=== PATIENT | female | born 1985 | race Caucasian/White ===

== ENCOUNTER → 2020-09-15 14:15 | Outpatient (CLI) | payer MEDICAID, SELFPAY ==
[2020-09-15 11:15] VITALS: BMI 27.3
[2020-09-15 14:18] LABS: Red Blood Cells-Urine 0 SEEN /hpf (0-5)
[2020-09-15 14:20] LABS: Color, Urine Yellow (Yellow); Glucose, Dipstick Normal (Normal); Leukocyte Esterase-Dipstick 100 /ul (Negative); Nitrite-Dipstick Negative (Negative); Occult Blood-Urine 25 /ul (Negative); Protein-Dipstick 30 mg/dl (Negative); Specific Gravity, Urine 1.025 (1.002-1.030); Urine Bilirubin Dipstick Negative (Negative); Urine Clarity Clear (Clear); Urine Urobilinogen Normal (Normal)
[2020-09-15 14:51] LABS: Ketone-Dipstick 150 mg/dl (Negative)
[2020-09-15 14:57] LABS: Bacteria 1+ /hpf (None Seen); Mucous, Urine 1+ /hpf (<or=2+); Squamous Epithelial Cells - UA 0-5 SEEN /hpf (5-10); White Blood Cells 0-5 SEEN /hpf (0-5)
== END ==
PROVIDERS: PCP Family Medicine; Referring Provider Nurse Practitioner Family; Visit Provider Nurse Practitioner Family
DX: N89.8 Other specified noninflammatory disorders of vagina (principal)
CPT/HCPCS: 81001; 87086

== ENCOUNTER 2020-09-15 15:53 | Emergency (ER) | payer MEDICAID, SELFPAY ==
[2020-09-15 11:15] VITALS: BMI 27.3
[2020-09-15 15:54] VITALS: BP 130/77; PULSE 99; RESP 14; TEMP 36.4; O2SAT 98; BMI 27.3
--- NOTE | 2020-09-15 16:07 | ED.VIS.GEN ---
History of Present Illness Chief Complaint: Abn Labs Detail of Chief Complaint: See below Informant: Patient Onset: Today Associated Symptoms: Malaise. Lightheaded with standing. Lower abd pain and urinary/vaginal sx. Narrative: For about 1 month patient has had vaginal discomfort and a discharge that is yellowish, occasional itching. She thought it was bacterial vaginosis which she has had before, she started using a cream that she had but it was not helping. For the last few days she has felt malaised and lightheaded at times, no fevers or chills. No cough, shortness of breath, nausea, vomiting, diarrhea, hematuria, but a little burning when she pees. She went to urgent care, they did a urinalysis and told her she had high ketones and sent her to the emergency department. Prior to having this urinalysis, she ate breakfast, and then had a small container of yogurt for lunch and presents here around 1600. She does not have diabetes that she knows of. She states she has been urinating frequently lately and thirsty. - Past Medical History (1) Amanda's congenital amaurosis Status: Chronic Past Medical History - Allergies and Home Meds Allergies/Adverse Reactions: Allergies No Known Allergies Allergy (Verified 09/15/20 11:16) Primary Care Physician: George Maza DO [Primary Care Provider] - Review of Systems General: Reports: Malaise. Denies: Chills, Fever, Sweats Eyes: Reports: Visual changes - bilaterally - same as chronically. Denies: Diplopia ENT: Denies: Bilateral ear pain, Rhinorrhea, Sore throat Cardiovascular: Denies: Chest pain, Palpitations Respiratory: Denies: Dyspnea, Cough, Dyspnea on exertion Gastrointestinal: Reports: Abdominal pain. Denies: Nausea, Vomiting, Diarrhea, Melena, Hematochezia Genitourinary: Reports: Dysuria, Frequency, - - vag discharge and discomfort and sometimes itching. Denies: Hematuria Musculoskeletal: Denies: Back pain, Extremity Pain Skin: Denies: Rash, Wounds Neurological: Denies: Headache, Weakness, Numbness Endocrine: Reports: Polyuria, Polydipsia Physical Exam Vital Signs/Narrative: Vital Signs Temp Pulse Resp BP Pulse Ox 09/15/20 15:54 97.6 F L 99 14 130/77 H 98 Inital Vital Signs reviewed: Yes General: Well nourished, Well developed, No Acute Distress Head: Normocephalic, Atraumatic Eyes: Perrl, EOMI, - - nystagmus at rest bilat ENT: Moist mucous membranes, No rhinorrhea Neck: Supple, Nontender Cardiovascular: Regular rate, Regular rhythm, No murmurs. Negative for: Tachycardia Respiratory: No distress, CTA bilaterally, Chest nontender Abdomen: Soft, Nondistended, Normal bowel sounds, Tender - mild suprapubic only Back: Nontender, Normal Inspection. Negative for: CVA tenderness Extremities: Nontender, No edema. Negative for: Calf Tenderness Skin: Normal color, No rash, No Trauma Neurological: Alert, Oriented x3, Cranial nerves II-XII grossly intact, Normal Strength, Normal Sensation, Normal Gait Psychological: Normal affect, Normal Mood Diagnostic/Tx/Re-eval Laboratory Tests 09/15/20 09/15/20 09/15/20 Range/Units 16:37 16:35 16:30 WBC (4.4-11.0) K/mm3 RBC (4.2-5.4) M/mm3 Hgb (12.0-15.0) g/dL Hct (37-47) % MCV (81-99) fL MCH (27.0-32.0) pg MCHC (32-36) g/dL RDW Std Deviation (35.1-43.9) fl RDW Coeff of Renée (11.6-14.6) % Plt Count (150-450) K/mm3 MPV (6.2-12.0) fl Immature Gran % (Auto) (0.0-0.9) % Neut % (Auto) (47-70) % Lymph % (Auto) (19-41) % Jerome % (Auto) (0-10) % Eos % (Auto) (0-5) % Baso % (Auto) (0-1) % Absolute Neuts (auto) (2.0-7.7) X10^3/uL Absolute Lymphs (auto) (0.83-4.51) X10^3/uL Nucleated RBC % (0-5) % Specimen Type JAIMEE VBG pH 7.41 (7.32-7.42) VBG pO2 33 (25-40) mmHg VBG HCO3 23 (22-26) mmol/L VBG Total CO2 24 (23-33) mmol/L VBG O2 Sat (Calc) 64 (50-70) % VBG Base Excess -2 L (-1.0-3.5) mmol/L POC Mix VBG pCO2 Pt Tmp 36.4 L (41-51) mmHg Sodium (136-145) mmol/L Potassium (3.5-5.1) mmol/L Chloride (98-107) mmol/L Carbon Dioxide (21.0-32.0) mmol/L Anion Gap (5-15) BUN (7-18) mg/dL Creatinine (0.55-1.02) mg/dL Estim Creat Clear Calc ml/min Est GFR (MDRD) Af Amer (>60) mL/min Est GFR (MDRD) Non-Af (>60) mL/min BUN/Creatinine Ratio (10-20) RATIO Glucose (74-106) mg/dL Calcium (8.5-10.1) mg/dL Serum , Qual NEGATIVE Negative Urine Color Straw (Yellow) Urine Clarity Clear (Clear) Urine pH 6.0 (5.0 - 8.0) Ur Specific [place] 1.010 (1.002-1.030) Urine Protein Negative (Negative) mg/dl Urine Glucose (UA) Normal (Normal) mg/dl Urine Ketones 50 H (Negative) mg/dl Urine Occult Blood Negative (Negative) /ul Urine Nitrite Negative (Negative) Urine Bilirubin Negative (Negative) mg/dL Urine Urobilinogen Normal (Normal) mg/dl Ur Leukocyte Esterase 100 H (Negative) /ul Urine RBC 0 SEEN (0-5) /hpf Urine WBC 0 SEEN (0-5) /hpf Ur Squamous Epith Cells 0-5 SEEN (5-10) /hpf Urine Bacteria 0 SEEN (None Seen) /hpf Urine Mucus 0 SEEN (<or=2+) /hpf Acetone Level (NEG) 09/15/20 09/15/20 09/15/20 Range/Units 16:30 16:30 16:30 WBC 5.7 (4.4-11.0) K/mm3 RBC 4.64 (4.2-5.4) M/mm3 Hgb 13.5 (12.0-15.0) g/dL Hct 41.0 (37-47) % MCV 88.4 (81-99) fL MCH 29.1 (27.0-32.0) pg MCHC 32.9 (32-36) g/dL RDW Std Deviation 40.8 (35.1-43.9) fl RDW Coeff of Renée 12.4 (11.6-14.6) % Plt Count 267 (150-450) K/mm3 MPV 9.2 (6.2-12.0) fl Immature Gran % (Auto) 0.500 (0.0-0.9) % Neut % (Auto) 49.2 (47-70) % Lymph % (Auto) 38.8 (19-41) % Jerome % (Auto) 6.9 (0-10) % Eos % (Auto) 3.2 (0-5) % Baso % (Auto) 1.4 H (0-1) % Absolute Neuts (auto) 2.8 (2.0-7.7) X10^3/uL Absolute Lymphs (auto) 2.21 (0.83-4.51) X10^3/uL Nucleated RBC % 0 (0-5) % Specimen Type VBG pH (7.32-7.42) VBG pO2 (25-40) mmHg VBG HCO3 (22-26) mmol/L VBG Total CO2 (23-33) mmol/L VBG O2 Sat (Calc) (50-70) % VBG Base Excess (-1.0-3.5) mmol/L POC Mix VBG pCO2 Pt Tmp (41-51) mmHg Sodium 136 (136-145) mmol/L Potassium 3.7 (3.5-5.1) mmol/L Chloride 106 (98-107) mmol/L Carbon Dioxide 22.0 (21.0-32.0) mmol/L Anion Gap 8 (5-15) BUN 14 (7-18) mg/dL Creatinine 0.83 (0.55-1.02) mg/dL Estim Creat Clear Calc 72.75 ml/min Est GFR (MDRD) Af Amer 101 (>60) mL/min Est GFR (MDRD) Non-Af 84 (>60) mL/min BUN/Creatinine Ratio 16.8 (10-20) RATIO Glucose 85 (74-106) mg/dL Calcium 8.8 (8.5-10.1) mg/dL Serum , Qual Negative Urine Color (Yellow) Urine Clarity (Clear) Urine pH (5.0 - 8.0) Ur Specific [place] (1.002-1.030) Urine Protein (Negative) mg/dl Urine Glucose (UA) (Normal) mg/dl Urine Ketones (Negative) mg/dl Urine Occult Blood (Negative) /ul Urine Nitrite (Negative) Urine Bilirubin (Negative) mg/dL Urine Urobilinogen (Normal) mg/dl Ur Leukocyte Esterase (Negative) /ul Urine RBC (0-5) /hpf Urine WBC (0-5) /hpf Ur Squamous Epith Cells (5-10) /hpf Urine Bacteria (None Seen) /hpf Urine Mucus (<or=2+) /hpf Acetone Level NEGATIVE (NEG) - Medical Decision Making Patient's urine does show some ketones here, but the rest of her work-up is normal. She does not have diabetes and certainly is not in DKA according to the work-up above. Pelvic exam was very benign. She did not have a lot of discomfort, externally there were no lesions. On speculum exam there is a trace amount of mucousy discharge present, there is no other abnormalities or cervicitis present. The wet prep is negative for trichomonas, the exam is inconsistent with candidiasis, and there are white blood cells present so I think it would be reasonable to treat her for bacterial vaginosis which is what she felt like the symptoms represented anyway. With regards to the ketones in her urine, this is likely due to starvation ketosis because what ever she ate today did not have much in the way of carbohydrates. She was reassured. ED Disposition - Plan for ED Patient: Disposition: Home or Assisted Living Diagnosis: Bacterial vaginosis Instructions: ED Bacterial Vaginosis (BV) Prescriptions: metroNIDAZOLE [Flagyl] 500 mg PO BID #14 tablet Transmission Status: Pending to [facility] [facility] Referrals: George Maza, [Primary Care Provider] - As Needed (And/or your OB)
[2020-09-15 16:40] LABS: Absolute Lymphocyte Count 2.21 X10^3/uL (0.83-4.51); Absolute Neutrophil Count 2.8 X10^3/uL (2.0-7.7); Basophil# 0.08 X10^3/uL; Basophil% 1.4 % (0-1); Eosinophil# 0.18 X10^3/uL; Eosinophils% 3.2 % (0-5); Hemoglobin 13.5 g/dL (12.0-15.0); Lymphocyte # 2.21 X10^3/ul (0.83-4.51); Lymphocyte % 38.8 % (19-41); Mean Corp Hgb Conc 32.9 g/dL (32-36); Mean Corpuscular Hgb 29.1 pg (27.0-32.0); Mean Corpuscular Volume 88.4 fL (81-99); Mean Platelet Vol. 9.2 fl (6.2-12.0); Monocyte# 0.39 X10^3/uL; Monocyte% 6.9 % (0-10); NRBC Flagged by Analyzer 0 % (0-5); Neutrophil % 49.2 % (47-70); Platelet Count 267 K/mm3 (150-450); RBC Distribution Width CV 12.4 % (11.6-14.6); RBC Distribution Width SD 40.8 fl (35.1-43.9); Red Blood Count 4.64 M/mm3 (4.2-5.4); White Blood Count 5.7 K/mm3 (4.4-11.0)
[2020-09-15 16:40] LABS: Blood Gas Specimen Type VEN; VBG BASE EXCESS -2 mmol/L (-1.0-3.5); VBG Bicarbonate 23 mmol/L (22-26); VBG PO2 33 mmHg (25-40); VBG SO2 64 % (50-70); VBG TCO2 24 mmol/L (23-33); VBG pCO2 36.4 mmHg (41-51); VBG pH 7.41 (7.32-7.42)
[2020-09-15] MEDS: 0.9% Normal Saline 1,000 ML 999 ML IV (16:42)
[2020-09-15 16:47] LABS: Bacteria 0 SEEN /hpf (None Seen); Mucous, Urine 0 SEEN /hpf (<or=2+); Red Blood Cells-Urine 0 SEEN /hpf (0-5); White Blood Cells 0 SEEN /hpf (0-5)
[2020-09-15 16:48] LABS: Color, Urine Straw (Yellow); Glucose, Dipstick Normal (Normal); Ketone-Dipstick 50 mg/dl (Negative); Leukocyte Esterase-Dipstick 100 /ul (Negative); Nitrite-Dipstick Negative (Negative); Occult Blood-Urine Negative /ul (Negative); Protein-Dipstick Negative (Negative); Urine Bilirubin Dipstick Negative (Negative); Urine Clarity Clear (Clear); Urine Urobilinogen Normal (Normal)
[2020-09-15 16:51] LABS: Internal QC Validated? YES +Cl - CLEAR BKGD; Pregnancy, Serum, hCG Quali. NEGATIVE Negative
[2020-09-15 16:55] LABS: Anion Gap 8 (5-15); BUN 14 mg/dL (7-18); BUN/Creat Ratio 16.8 RATIO (10-20); Calcium,Total 8.8 mg/dL (8.5-10.1); Chloride 106 mmol/L (98-107); Creatinine, Serum 0.83 mg/dL (0.55-1.02); EST Glomerular Filtration Rate 84 mL/min (>60); Est Glom Filt Rate - Afr Amer 101 mL/min (>60); Estimated Creatinine Clearance 72.75 ml/min; Glucose 85 mg/dL (74-106); Potassium 3.7 mmol/L (3.5-5.1); Sodium Level 136 mmol/L (136-145)
[2020-09-15 16:57] LABS: Squamous Epithelial Cells - UA 0-5 SEEN /hpf (5-10)
[2020-09-15 17:08] VITALS: BP 123/71; BP 130/90; BP 134/80; PULSE 76; PULSE 78; PULSE 90
[2020-09-15 18:55] LABS: Chlamydia Trachomatis by PCR Negative (Negative); Neisserai gonorrhoeae by PCR Negative (Negative); Probe Check PASS; Sample Adequacy Control PASS; Specimen Processing Control PASS
== END 2020-09-15 17:55 | disposition home or self-care (01) ==
PROVIDERS: Emergency Provider Emergency Medicine; PCP Family Medicine
DX: N76.0 Acute vaginitis (principal); B96.89 Other specified bacterial agents as the cause of diseases classified elsewhere
CPT/HCPCS: 80048; 81001; 82009; 82803; 84703; 85025; 87086; 87088; 87210; 87491; 87591; 99285; J7030; A4216

== ENCOUNTER → 2020-09-26 12:51 | Outpatient (CLI) | payer MEDICAID, SELFPAY ==
[2020-09-26 09:08] VITALS: BMI 27.3
[2020-09-28 04:09] LABS: Chlamydia By Nucleic Acid AMP Negative (Negative)
[2020-09-28 07:26] LABS: Gonococcus By Nucleic Acid AMP Negative (Negative)
== END ==
PROVIDERS: PCP Family Medicine; Referring Provider Nurse Practitioner Women's Health; Visit Provider Nurse Practitioner Women's Health
DX: N89.8 Other specified noninflammatory disorders of vagina (principal); Z11.3 Encounter for screening for infections with a predominantly sexual mode of transmission
CPT/HCPCS: 87070; 87205; 87491; 87591

== ENCOUNTER → 2021-04-02 12:48 | Outpatient (CLI) | payer MEDICAID, SELFPAY ==
[2021-04-04 05:07] LABS: Chlamydia By Nucleic Acid AMP Negative (Negative)
[2021-04-04 09:33] LABS: Gonococcus By Nucleic Acid AMP Negative (Negative)
== END ==
PROVIDERS: PCP Family Medicine; Visit Provider Obstetrics & Gynecology
DX: N89.8 Other specified noninflammatory disorders of vagina (principal)
CPT/HCPCS: 87491; 87591

== ENCOUNTER 2021-04-22 13:03 | Day surgery (SDC) | payer MEDICAID, SELFPAY ==
[2021-04-22] VITALS (8 sets, daily range): BP systolic 122–127; BP diastolic 76–83; PULSE 76–96; RESP 16; TEMP 35.9–36.6; O2SAT 95–100; BMI 28.7
--- NOTE | 2021-04-22 12:41 | PCM.HP.BLA ---
History and Physical Medications cetirizine 10 mg PO DAILY 09/15/20 [History Confirmed 04/02/21] norethindrone-ethin estradiol 1 tablet PO DAILY 09/15/20 [History Confirmed 04/02/21] levonorgestrel 20 mcg/24 hours (7 yrs) 52 mg intrauterine device 1 device INTRAUTERINE ONCE 09/26/20 [History Confirmed 04/02/21] Post menopausal: No Patient : No : No PFSH Family History Mother Bladder cancer Social History household members: family number of children: 0 current occupational status: employed current occupation: [employer] history of recent travel: No sexually active: Yes Smoking Status: Never smoker alcohol intake: current alcohol intake frequency: holidays/special occasions only substance use type: does not use what type of physical activity do you participate in: none seatbelt use: always do you feel safe at home: Yes additional social history: single HPI Surgical consult to remove IUD per Details: FAUZIA CARTWRIGHT is a 35 year old who presents for removal of IUD. She has a 3 x3x2 cm intramural fibroid pressing against the IUD and the uterine wall and 2 providers have attempted removal. The patient is using ocps for the fibroid pain and is interested in having the fibroid also removed. 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 Female Reproductive History Cycle Length: 21-35 Bleeding Duration: 5 Questions: metorrhagia: No, sexually active: Yes, dyspareunia: No and PCB: No Menopausal Symptoms: No hot flashes, No night sweats, No weight change, No mood changes, No difficulty concentrating, No sleep problems and No change in libido Pregancy History 0 Elective abortions Hx Para Spontaneous abortions Hx # Term Pregnancies Ectopic pregnancies Hx # Pregnancies Multiple births # of living children ROS Const Constitutional: Reports as per HPI; Denies fatigue, increased appetite, poor appetite, night sweats, weight gain or weight loss Cardio Card: Denies chest pain Resp Resp: Denies cough or dyspnea GI GI: Reports as per HPI; Denies abdominal pain, bloating, constipation, nausea or vomiting : Reports as per HPI and other; Denies difficulty voiding, dysuria, hematuria, hot flashes, nipple discharge, pelvic pain, prolapse symptoms, urinary frequency, urinary incontinence, urinary urgency, vaginal discharge, vaginal dryness, vaginal odor or vaginal pruritus Skin Skin/Breast: Denies changing lesions, breast mass, breast pain, breast skin changes or nipple discharge Psych Psych: Denies anxiety, change in libido, depression or difficulty concentrating Exam Const General: cooperative, healthy appearing, comfortable, no acute distress, well developed and well groomed [facility] Face and sinus: normal facial exam Resp Effort & Inspection: normal respiratory effort GI Inspection: normal to inspection and non-distended Palpation: soft, no hepatosplenomegaly and no guarding General: bladder normal to palpation External Female Exam: normal external appearance, normal appearance of the urethra and no lesions Urethra: normal appearance of the urethra and normal palpation Speculum Exam - Vagina: normal appearance of the vagina and normal vaginal discharge Speculum Exam - Cervix: normal appearance of the cervix, no cervical discharge, no lesions and nontender Bimanual Exam- Vagina & Uterus: normal bimanual exam, uterine size normal, bladder normal to palpation, No tender, uterine mobility normal, consistency normal, non-tender and no cervical motion tenderness Bimanual Exam- Adnexa, other: normal adnexae, no masses and non-tender Skin General: no rashes or lesions noted Neuro General: patient alert, moves all extremities and no focal motor deficits Extrem General: normal to inspection and no pedal edema Psych Appearance: grossly normal Mental Status: mental status grossly normal Affect: normal affect Speech and Movement: speech and movement normal Attitude: cooperative Results Office BVBlue Test Office BVBlue Test Negative Last Edit by Serene Kiran on 04/02/21 11:01 Coding Level of Care Code Off vis,est,level 4 Diagnoses IUD complication T83.9XXA Dysmenorrhea N94.6 Blind H54.7 Fibroid uterus D25.9 Assessment and Plan Assessment and Plan (1) IUD complication: Status: Acute Comment: no visible strings; plan for hysteroscopy, symphion resection of fibroid and removal of IUD. Plan - Dr. Steff Roldan, DO: After discussing the patient's diagnosis and treatment plan options, patient wishes to proceed with surgical management. I have discussed with the patient the risks, benefits, and alternatives of the procedure which include but are not limited to risks of anesthesia, bleeding, infection, possible damage to bowel, bladder, or surrounding vasculature which could lead to additional surgery to evaluate any complications. Patient agrees to procedure and wishes to proceed. ACOG/uptodate references given for additional information regarding procedure. (2) Dysmenorrhea: Status: Acute Comment: OCP (3) Blind: Status: Acute (4) Fibroid uterus: Status: Acute Plan Details Other Orders: Orders: POC BV Blue Test Today N89.8 Chlamydia/GC GAYE aptima Today N89.8 UPDATE- I have seen the patient and performed any clinically relevant updates to the history and physical exam. Steff Reagan DO
[2021-04-22] MEDS: Lactated Ringers 1,000 ML 15 ML IV (13:15)
[2021-04-22 13:50] LABS: Absolute Lymphocyte Count 2.12 X10^3/uL (0.83-4.51); Absolute Neutrophil Count 2.8 X10^3/uL (2.0-7.7); Basophil# 0.07 X10^3/uL; Basophil% 1.2 % (0-1); Eosinophils% 3.6 % (0-5); Hematocrit 38.7 % (37-47); Lymphocyte # 2.12 X10^3/ul (0.83-4.51); Lymphocyte % 37.7 % (19-41); Mean Corp Hgb Conc 33.6 g/dL (32-36); Mean Corpuscular Hgb 29.4 pg (27.0-32.0); Mean Corpuscular Volume 87.6 fL (81-99); Mean Platelet Vol. 8.9 fl (6.2-12.0); Monocyte# 0.38 X10^3/uL; Monocyte% 6.8 % (0-10); NRBC Flagged by Analyzer 0 % (0-5); Neutrophil # 2.84 X10^3/uL (2.7-7.7); Neutrophil % 50.5 % (47-70); Platelet Count 261 K/mm3 (150-450); RBC Distribution Width CV 12.4 % (11.6-14.6); RBC Distribution Width SD 40.1 fl (35.1-43.9); Red Blood Count 4.42 M/mm3 (4.2-5.4); White Blood Count 5.6 K/mm3 (4.4-11.0)
[2021-04-22 13:53] LABS: Internal QC Validated? YES +Cl - CLEAR BKGD; Pregnancy, Urine Negative Negative
--- NOTE | 2021-04-22 14:53 | PCM.DC ---
Discharge Instructions Diet Discharge Diet: No restrictions Activity Discharge Activity: Return to Normal Activity, May Shower and May Take a Tub Bath (after 1 week) May resume sexual activity in: 1-2 weeks Weight Bearing Status: Weight bearing as tolerated Lifting Restrictions: none Dressing / Incision Call your doctor if you observe: Fever of 101 or Higher, Using more than 1 pad per hour, Shortness of breath and Uncontrolled pain Follow Up Care Please Follow Up With: Steff Reagan DO When: Call [phone] to schedule appointment. Test Results: Test results from this visit will be discussed in further detail at your follow-up appointment, if applicable. Discharge Plan Admission Primary Reason for Your Visit: retained IUD and uterine fibroid Attending Provider: Steff Reagan Primary Care Provider: George Maza Instructions Patient Instructions: Dilation and Curettage Discharge Orders/Prescriptions Prescriptions: New oxycodone-acetaminophen [Percocet] 5-325 mg tablet 1 tab PO Q6H PRN (Reason: pain) 3 Days Qty: 10 RF: 0 ibuprofen 800 mg tablet 800 mg PO Q8H PRN (Reason: pain) 7 Days Qty: 30 RF: 0 norethindrone-ethin estradiol 0.5-35 mg-mcg tablet 1 tab PO DAILY 28 Days Qty: 28 RF: 12 Continued norethindrone-ethin estradiol 1 EACH tablet 1 tablet PO DAILY RF: 0 cetirizine 10 MG capsule 10 mg PO DAILY RF: 0 Discontinued Mirena 20 mcg/24 hours (6 yrs) 52 mg intrauterine device 1 device intrauterine ONCE RF: 0 Referrals / Follow Up: George Maza DO [Primary Care Provider] - Disposition Disposition (needs filled in before D/C Order can be placed): Home, Self Care
[2021-04-22] MEDS: Lidocaine 1% (20 ml mdv) 20 ML Vial (15:37)
--- NOTE | 2021-04-22 16:04 | PCM.OP.BLANK ---
Problems Associated Problem List Diagnoses (1) Dysmenorrhea: (2) Fibroid uterus: (3) IUD complication: Operative Report Date of Procedure: 04/22/21 Preoperative diagnosis: fibroid uterus, retained IUD Postoperative diagnosis: fibroid uterus, retained IUD Surgeon: Dr. Steff Reagan DO Operation: hysteroscopic guided removal of retained IUD, attempted myomectomy Findings: 8 cm uterus with a posterior, lower uterine segment intramural fibroid and a retained IUD lodged between the fibroid and the sidewall of the uterus. specimens: no pathologic specimens, IUD removed and discarded Urine output: 30cc Fluids: 800cc crystalloid Complications: none Details of the procedure: Patient was prepped and draped in a normal sterile fashion under MAC anesthesia. A weighted speculum was placed in the vagina and the anterior lip of the cervix was grasped with a single-tooth tenaculum. A paracervical block was placed with 1% lidocaine. Cervix was progressively dilated to allow passage of a 5 mm hysteroscope however only to the level of the internal cervical os. The posterior/lower uterine segment fibroid size and location did not allow for adequate safe entry of the hysteroscope into the uterus without causing harm. Many attempts were made and advancement of the scope into the uterus was not achieved. The IUD however was visualized at the level of the cervical/uterine junction. Using polyp forceps the device was grasped and removed in it's entirety without complication. T All instruments were removed from the vagina and excellent hemostasis was noted. Patient was awoken and taken to recovery in stable condition. Multi Select Codes Urinary/Genital Urinary/Genital CPT Codes: 85774 Hysteroscopic removal of FB
== END 2021-04-22 16:40 | disposition home or self-care (01) ==
LOC: SDC 13:04 → AC 13:05
PROVIDERS: PCP Family Medicine; Referring Provider Obstetrics & Gynecology; Visit Provider Obstetrics & Gynecology
PROC: 0UB98ZZ Excision of Uterus, Via Natural or Artificial Opening Endoscopic (ICD-10-PCS; CPT 58558; principal; 2021-04-22 14:30)
DX: T83.39XA Other mechanical complication of intrauterine contraceptive device, initial encounter (principal); D25.1 Intramural leiomyoma of uterus; H54.7 Unspecified visual loss; Z30.432 Encounter for removal of intrauterine contraceptive device
CPT/HCPCS: 00952; 58562; 81025; 85025; 86850; 86900; 86901; J7120; J2405

== ENCOUNTER 2021-07-15 17:23 | Outpatient (CLI) | payer MEDICAID, SELFPAY | END 2021-07-15 23:59 | disposition home or self-care (01) | PROVIDERS: PCP Family Medicine; Visit Provider Nurse Practitioner Women's Health | DX: N76.0 Acute vaginitis (principal) | CPT/HCPCS: 87070; 87205 ==

== ENCOUNTER 2021-08-08 08:26 | Outpatient (CLI) | payer MEDICAID, SELFPAY ==
--- NOTE | 2021-08-08 08:33 | RAD_ITS ---
EXAMINATION: Air contrast UPPER GI SERIES INDICATION: Female, 36 years history of chronic gastroesophageal reflux. FLUOROSCOPY TIME (if supplied): (0:38) minutes/seconds TECHNIQUE: Radiographic and fluoroscopic images of the distal esophagus, stomach, and proximal small intestine were obtained following the oral ingestion of barium. COMPARISON: None. FINDINGS: There is no evidence for organomegaly, abnormal calcifications, or abnormal bowel gas pattern. The psoas margins and flank stripes are normal. The visualized osseous structures are normal. The mucosa of the esophagus, stomach and duodenum is normal in appearance without evidence for stricture, ulceration, mass or diverticulum. There is evidence of a small hiatal hernia and gastroesophageal reflux. The remainder of the stomach and duodenum is unremarkable. RAD/Upper GI Dual Contrast IMPRESSION: Small sliding hiatal hernia with gastroesophageal reflux. Electronically Signed: Noah Miner MD at 10:02 [facility] ,
== END 2021-08-08 23:59 | disposition home or self-care (01) ==
PROVIDERS: PCP Family Medicine; Referring Provider Family Medicine; Visit Provider Family Medicine
DX: R12 Heartburn (principal)
CPT/HCPCS: 74246

== ENCOUNTER → 2024-11-15 | Outpatient (CLI) | payer MEDICAID, SELFPAY ==
[2024-11-15 11:17] LABS: Absolute Lymphocyte Count 1.48 X10^3/uL (0.83-4.51); Absolute Neutrophil Count 2.5 X10^3/uL (2.0-7.7); Basophil# 0.06 X10^3/uL; Basophil% 1.3 % (0-1); Eosinophil# 0.31 X10^3/uL; Eosinophils% 6.6 % (0-5); Hematocrit 38.1 % (37-47); Hemoglobin 12.6 g/dL (12.0-15.0); Lymphocyte # 1.48 X10^3/ul (0.83-4.51); Lymphocyte % 31.3 % (19-41); Mean Corp Hgb Conc 33.1 g/dL (32-36); Mean Corpuscular Volume 87.6 fL (81-99); Mean Platelet Vol. 9.1 fl (6.2-12.0); Monocyte# 0.34 X10^3/uL; Monocyte% 7.2 % (0-10); NRBC Flagged by Analyzer 0 % (0-5); Neutrophil # 2.52 X10^3/uL (2.7-7.7); Neutrophil % 53.2 % (47-70); Platelet Count 246 K/mm3 (150-450); RBC Distribution Width CV 12.8 % (11.6-14.6); RBC Distribution Width SD 41.3 fl (35.1-43.9); Red Blood Count 4.35 M/mm3 (4.2-5.4); White Blood Count 4.7 K/mm3 (4.4-11.0)
[2024-11-15 11:59] LABS: ALB/GLOB Ratio 1.7 RATIO (0.9-2.4); AST(SGOT) 17 U/L (<=31); Alanine Aminotransfer ALT/SGPT 6 U/L (<=34); Albumin, Serum 4.1 g/dL (3.5-5.0); Alkaline Phosphatase 67 U/L (35-104); Anion Gap 9 (5-15); BUN 8 mg/dL (4-19); BUN/Creat Ratio 10.1 RATIO (10-20); Calcium,Total 8.9 mg/dL (7.6-11.0); Carbon Dioxide 24.2 mmol/L (21.0-32.0); Chloride 106 mmol/L (98-108); Creatinine, Serum 0.79 mg/dL (0.70-1.20); EST Glomerular Filtration Rate 99 (>60); Globulin 2.5 g/dL (2.2-4.2); Glucose 72 mg/dL (70-99); Potassium 3.7 mmol/L (3.3-5.1); Protein, Total 6.5 g/dL (5.9-8.4); Sodium Level 139 mmol/L (133-145); Total Bilirubin 0.24 mg/dL (0.00-1.30); Vitamin D,25 Hydroxy 38.5 ng/mL (30-100)
== END | disposition home or self-care (01) ==
LOC: VSLAB 10:03
DX: R53.83 Other fatigue (principal)
CPT/HCPCS: 36415; 80053; 82306; 84443; 85025

== ENCOUNTER → 2024-12-14 | Outpatient (CLI) | payer MEDICAID, SELFPAY | END | disposition home or self-care (01) | LOC: SL 12:35 | DX: G47.10 Hypersomnia, unspecified (principal) | CPT/HCPCS: 95806 ==

== ENCOUNTER 2025-05-01 07:04 | Day surgery (SDC) | payer MEDICAID, SELFPAY ==
[2025-05-01] VITALS (8 sets, daily range): BP systolic 81–105; BP diastolic 59–71; PULSE 51–97; RESP 16; TEMP 36.1–36.9; O2SAT 96–100; BMI 29.5
--- OUTSIDE RECORDS SUMMARY | 2025-05-01 07:10 | XMS RPT_ITS | CCD ---
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 Portable Name Role Phone Karina Christine Unavailable [phone] BOBOLISA BOOKERN E Referring Unavailable BOBOLISAN E Attending Unavailable BOBO, CARLA E Admitting Unavailable CleKarina marcos Primary Care Provider [phone] Karina Christine MD Primary Care Provider ERICK MEEKS Attending Unavailable CLEKARINA MARCOS Primary Care Unavailabl e ERICK MEEKS Admitting Unavailable ERICK MEEKS Referring Unavailable CLEMENJAY, KARINA ARGUETA Primary Care Unavailabl e ERICK MEEKS Attending Unavailable CLEMENJAY, KARINA ARGUETA Primary Care Unavailabl e ERICK MEEKS Attending Unavailable CLEMENJAY, KARINA ARGUETA Primary Care UnavailERICK Calabrese Admitting Unavailable ERICK MEEKS Referring Unavailable CLEMENJAY, KAIRNA ARGUETA Primary Care Unavailabl e CLEMENJAY, KARINA ARGUETA Primary Care Unavailabl ERICK Plascencia Attending Unavailable ERICK MEEKS Admitting Unavailable George Maza DO Primary Care Provider George Maza DO F Primary Care Provider [phone] Shaunna SALEEM George F Primary Care Provider GEORGE MAZA Primary Care Unavailable VOLODYMYR VELAZQUEZ Attending Unavailable Beam BOX INSPECTOR-C, Zebulun Primary Care Provider Beam BOX INSPECTOR-C, Zebulun Attending Provider Beam BOX INSPECTOR-C, Zebulun Referring Provider Beam VSC, Zebulun Attending Unavailable Beam VSC, Zebulun Primary Care Unavailable Beam VSC, Zebulun Referring [facility]available [facility] Un[facility] Unavailable [facility] Primary Care Unavailable Erick Morrissey Attending Unavailable Allergies Allergy Classification Reported Allergen(s) Allergy Type Date of Onset Reaction(s) Facility Lidocaine (1 source) Lidocaine Drug Allergy 08-04-2019 [facility] (11 sources) Lidocaine Drug Allergy 08-04-2019 [facility] Medications Current Medications Medication Drug Class(es) Dates Sig (Normalized) Sig (Original) azithromycin 250 mg oral tablet (2 sources) Macrolide Antimicrobial Start: 05-31-2023 Azithromycin (Zithromax Z-Anders) 250 mg tablet Active 0 PO .COMPLEX 6 0 May 31, 2023 1:00am For 250 mg dose pack: take 500 mg today (day 1), then 250 mg for 4 days (days 2-5) PO cetirizine hydrochloride 10 mg oral tablet (17 sources) Histamine-1 Receptor Antagonist Start: 04-18-2022 End: 10-28-2023 take 1 tablet by mouth once daily in the morning cetirizine (ZyrTEC) 10 MG tablet TAKE 1 TABLET BY MOUTH EVERY DAY IN THE MORNING 30 tablet 5 06/16/2022 Active Start: 09-15-2020 take [address] [facility] once daily Cetirizine 10 MG capsule Active 10 mg PO DAILY September 15, 2020 12:00am clindamycin 300 mg oral capsule (20 sources) Lincosamide Antibacterial Start: 12-16-2020 End: 12-18-2020 take 1 capsule by mouth twice daily clindamycin (CLEOCIN) 300 MG capsule Take 1 (one) capsule (300 mg total) by mouth 2 (two) times a day . 14 capsule 0 12/18/2020 Active Start: 07-17-2019 End: 10-14-2020 take 1 capsule by mouth twice daily clindamycin (CLEOCIN) 300 MG capsule Take 1 (one) capsule (300 mg total) by mouth 2 (two) times a day . 14 capsule 0 08/14/2019 10/14/2020 Discontinued (Patient Discharge) Start: 02-21-2018 take 1 capsule by mo ut twice daily clindamycin (CLEOCIN) 300 MG capsule Take 1 (one) capsule (300 mg total) by mouth 2 (two) times a day . 14 capsule 0 04/13/2018 Active Start: 01-19-2018 take 1 capsule by [facility] twice daily clindamycin (CLEOCIN) 300 MG capsule Take 1 (one) capsule (300 mg total) by mouth 2 (two) times a day. 14 capsule 0 01/19/2018 Active fluticasone propionate 0.05 mg/actuat metered dose nasal spray (6 sources) Corticosteroid Start: 02-24-2023 End: 10-27-2024 take 2 spray(s) nasal route once daily fluticasone (Flonase) 50 MCG/ACT nasal spray Administer 2 sprays into each nostril daily. Shake gently. Before first use, prime pump. After use, clean tip and replace cap. 16 g 5 10/28/2023 10/27/2024 Active meclizine hydrochloride 12.5 mg oral tablet (3 sources) Antiemetic Start: 12-06-2023 End: 12-05-2024 take 1 tablet by mouth three times daily as needed for dizziness meclizine (Antivert) 12.5 MG tablet Indications: Vertigo Take 1 tablet (12.5 mg) by mouth 3 times daily as needed for dizziness. 30 tablet 01/20/2024 02/19/2024 Active methylPREDNISolone 4 mg oral tablet (2 sources) Corticosteroid Start: 12-06-2023 End: 12-13-2023 methylPREDNISolone (Medrol Dospak) 4 MG tablets Indications: Vertigo Take as directed on package. 21 tablet 12/06/2023 12/13/2023 Active Start: 08-05-2022 End: 08-12-2022 methylPREDNISolone (Medrol D ospak) 4 MG tablets Indications: Right shoulder tendonitis Take as directed on package. 21 tablet 0 08/05/2022 08/12/2022 Active Multivit 05-Rnkt-Pmunsi 6-Dh a (Prenate Dha) 28 mg iron-1 mg -300 mg capsule (2 sources) Start: 06-17-2022 Multivit 45-Ir on-Folate 6-Dha (Prenate Dha) 28 mg iron-1 mg -300 mg capsule Active 1 NMA PO .daily 90 June 17, 2022 1:00am Start: 06-17-2022 Multivit 45-Ir on-Folate 6-Dha (Prenate Dha) 28 mg iron-1 mg - 300 mg capsule Active 1 NMA PO .daily June 17, 2022 1:00am pantoprazole 40 mg delayed release oral tablet (11 sources) Proton Pump Inhibitor Start: 08-12-2021 take 1 tablet by mouth once daily before breakfast pantoprazole (ProtoNix) 40 MG EC tablet Take 40 mg by mouth every morning (before breakfast). 08/12/2021 Active Start: 07-15-2021 End: 05-08-2022 take 1 tablet by mouth once daily Pantoprazole 20 mg tablet,delayed release (DR/EC) Discontinued 20 mg PO DAILY July 15, 2021 1:00am May 08, 2022 1:51pm Yktrag-SmSlc-Txsm-FA-DHA w/o A (Prenate DHA) 18-0.6-0.4-300 MG capsule (9 sources) Start: 06-19-2022 take 1 capsule by mouth once daily Grcrlw-KiXwp-Rzjs-FA-DHA w/o A (Prenate DHA) 18-0.6-0.4-300 MG capsule Take 1 capsule by mouth daily. 06/19/2022 Active Start: 06-19-2022 take 1 capsule by [facility] once daily Wgdqvr-WmVmt-Ldty-FA-DHA w/o A (Prenate DHA) 18-0.6-0.4-300 MG capsule Take 1 capsule by mouth daily. 0 06/19/2022 Active ubidecarenone 50 mg oral capsule (1 source) Start: 08-05-2022 End: 11-03-2022 take 1 capsule by mouth once daily coenzyme Q-10 50 MG capsule Indications: Amanda's congenital amaurosis Take 1 capsule (50 mg) by mouth daily. 30 capsule 2 08/05/2022 11/03/2022 Active Completed/Discontinued Medications Medication Drug Class(es) Dates Sig (Normalized) Sig (Original) acetaminophen 325 mg / oxyCODONE hydrochloride 5 mg oral tablet (2 sources) Opioid Agonist Start: 04-22-2021 End: 05-06-2021 Oxycodone-Acetamin ophen (Percocet) 5-325 mg tablet Discontinued 1 {tbl} PO EVERY 6 HOURS as needed for pain 10 3 0 April 22, 2021 May 06, 2021 4:01pm Complication of intrauterine device (IUD) Dysmenorrhea Uterine leiomyoma Dysmenorrhea, unspecified Leiomyoma of uterus, unspecified amoxicillin 500 mg oral capsule (5 sources) Penicillin-class Antibacterial Start: 10-15-2020 End: 12-18-2020 take 1 capsule by mouth twice daily amoxicillin (AMOXIL) 500 MG capsule Take 1 (one) capsule (500 mg total) by mouth 2 (two) times a day . 14 capsule 0 10/15/2020 12/18/2020 Discontinued (Patient Discharge) dexamethasone 6 mg oral tablet (2 sources) Corticosteroid Start: 05-29-2021 End: 05-08-2022 take 1 tablet by mouth once daily Dexamethasone (Decadron) 6 mg tablet Discontinued 6 mg PO DAILY 10 May 29, 2021 1:00am May 08, 2022 1:51pm diclofenac sodium 0.01 mg/mg topical gel (7 sources) Nonsteroidal Anti-inflammatory Drug Start: 08-17-2022 End: 12-06-2023 Diclofenac Sodium (Voltaren) 1 % gel Indications: Right shoulder tendonitis Apply 2 g topically 2 times daily. 50 g 08/17/2022 12/06/2023 Discontinued (Therapy completed) Norethindrone-Ethin Estradiol (18 sources) Estrogen Start: 06-03-2021 End: 05-08-2022 take 1 tablet by mouth once daily Norethindrone-Ethi n Estradiol 0.5-35 mg-mcg tablet Discontinued 1 {tbl} PO DAILY June 03, 2021 3:06pm May 08, 2022 1:51pm take active pills only Start: 06-03-2021 End: 05-08-2022 Norethindrone-Ethin Estradio l 0.5-35 mg-mcg tablet Discontinued 1 {tbl} PO DAILY June 03, 2021 3:06pm May 08, 2022 1:51pm Start: 04-22-2021 End: 06-03-2021 Norethindrone-Ethin Estradio l 0.5-35 mg-mcg tablet Discontinued 1 {tbl} PO DAILY April 22, 2021 1:00am June 03, 2021 3:06pm Start: 04-22-2021 End: 06-03-2021 Norethindrone-Ethin Estradio l 0.5-35 mg-mcg tablet Discontinued 1 {tbl} PO DAILY April 22, 2021 1:00am June 03, 2021 3:06pm Start: 07-03-2020 End: 05-06-2021 Norethindrone-Ethin Estradio l 1 EACH tablet Discontinued 1 {tbl} PO DAILY September 15, 2020 12:00am May 06, 2021 4:01pm fluconazole 150 mg oral tablet (5 sources) Azole Antifungal Start: 07-20-2021 End: 05-08-2022 Fluconazole 150 mg tablet Discontinued 150 mg PO .COMPLEX 2 July 20, 2021 1:00am May 08, 2022 1:39pm 150 mg PO take one po now and repeat in 3 days Start: 05-21-2021 End: 05-22-2021 take 1 tablet by mouth once daily Fluconazole (Diflucan) 150 mg tablet Discontinued 150 mg PO DAILY 1 1 May 21, 2021 1:00am May 21, 2021 1:00am May 22, 2021 1:01am Infection due to Streptococcus agalactiae Streptococcal infection, unspecified site Start: 10-15-2020 End: 10-15-2020 take 1 tablet by mouth once fluconazole (DIFLUCAN) 150 MG tablet Take 1 (one) tablet (150 mg total) by mouth once for 1 dose . 1 tablet 2 10/15/2020 10/15/2020 Active ibuprofen 800 mg oral tablet (5 sources) Nonsteroidal Anti-inflammatory Drug Start: 04-22-2021 End: 05-08-2022 take 1 tablet by mouth every eight hours as needed for pain Ibuprofen 800 mg tablet Discontinued 800 mg PO Q8H as needed for pain 30 7 0 April 22, 2021 1:00am May 08, 2022 1:51pm Start: 08-11-2017 End: 08-11-2018 take 1 tablet by mouth every eight hours as needed ibuprofen (ADVIL,MOTRIN) 800 MG tablet Take 1 (one) tablet (800 mg total) by mouth every 8 (eight) hours as needed for pain. 30 tablet 1 08/11/2017 08/11/2018 Active levonorgestrel 0.654618 mg/hr intrauterine system (13 sources) Progestin, Progestin-containing Intrauterine Device Start: 09-26-2020 End: 04-22-2021 Levonorgestrel (Mirena) 20 mcg/24 hours (6 yrs) 52 mg intrauterine device Discontinued 1 NMA INTRA-UTER ONCE September 26, 2020 12:00am April 22, 2021 3:54pm as a single dose metroNIDAZOLE 500 mg oral tablet (19 sources) Nitroimidazole Antimicrobial Start: 07-15-2021 End: 05-08-2022 take 1 tablet by mouth twice daily Metronidazole 500 mg tablet Discontinued 500 mg PO TWICE A DAY 14 0 July 15, 2021 1:00am May 08, 2022 1:39pm Start: 05-04-2021 metroNIDAZOLE (METROGEL) 0.75 % vaginal gel insert 1 APPLICATION vaginally two times a week for 6 WEEKS 70 g 1 05/04/2021 Active Start: 02-13-2021 End: 05-04-2021 metroNIDAZOLE (METROGEL) 0.7 5 % vaginal gel insert 1 APPLICATION vaginally two times a week for 6 WEEKS 70 g 1 02/13/2021 05/04/2021 Discontinued Start: 12-12-2020 End: 12-18-2020 metroNIDAZOLE (METROGEL) 0.7 5 % vaginal gel insert 1 APPLICATION vaginally two times a week for 6 WEEKS 70 g 1 12/12/2020 12/18/2020 Discontinued (Patient Discharge) Start: 09-15-2020 End: 09-26-2020 Metronidazole 1 APPLIC gel Discontinued 70 NMA VAGINAL .COMPLEX September 15, 2020 12:00am September 26, 2020 9:09am Q3days per pt Start: 09-15-2020 End: 09-26-2020 take 1 tablet by mouth twice daily Metronidazole 500 MG tablet Discontinued 500 mg PO TWICE A DAY 14 September 15, 2020 12:00am September 26, 2020 9:09am Start: 06-21-2020 End: 06-28-2020 take 1 tablet by mouth every twelve hours Metronidazole 500 mg tablet Discontinued 500 mg PO Q12H 14 7 0 June 21, 2020 1:00am June 27, 2020 1:00am June 28, 2020 1:03am Start: 08-21-2019 End: 10-14-2020 metroNIDAZOLE (METROGEL) 0.7 5 % vaginal gel Insert 1 applicatorful into the vagina 2 times weekly for 6 weeks . 70 g 4 07/19/2020 10/14/2020 Discontinued (Patient Discharge) Problems Active Problems Problem Classification Problem Date Documented Date Episodic/Chronic Benign neoplasm of uterus (2 sources) Uterine leiomyoma; Translations: [Leiomyoma of uterus, unspecified] 05-19-2022 Episodic Comment on above: small fibroid in cer vix. 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 Conditions associated with dizziness or vertigo (6 sources) Vertigo; Translations: [Dizziness and giddiness] Onset: 12-06-2023 12-06-2023 Episodic Inflammatory diseases of female pelvic organs (8 sources) Acute vaginitis; Translations: [Acute vaginitis] Episodic Menstrual disorders (17 sources) Dysmenorrhea; Translations: [Dysmenorrhea, unspecified] Onset: 01-17-2018 01-17-2018 Chronic Comment on above: OCP- continuous use Other female genital disorders (14 sources) Abnormal uterine and vaginal bleeding, unspecified; Translations: [Abnormal uterine bleeding] Onset: 01-17-2018 01-17-2018 Chronic Other nutritional; endocrine; and metabolic disorders (2 sources) Overweight in adulthood with body mass index of 25 or more but less than 30; Translations: [Body mass index (BMI) 28.0-28.9, adult] 06-05-2021 Episodic Other upper respiratory disease (12 sources) Allergic rhinitis; Translations: [Allergic rhinitis, unspecified] Onset: 01-01-2020 03-13-2022 Chronic Other upper respiratory infections (2 sources) Upper respiratory infection; Translations: [Acute upper respiratory infection, unspecified] 05-31-2023 Episodic Residual codes; unclassified (1 source) Hypersomnia, unspecified; Translations: [Hypersomnia, unspecified] Onset: 12-20-2024 Chronic Residual codes; unclassified (2 sources) Postoperative state; Translations: [Other specified postprocedural states] 05-06-2021 Episodic Retinal detachments; defects; vascular occlusion; and retinopathy (15 sources) Amanda's amaurosis; 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] Onset: 01-01-2020 03-13-2022 Chronic Unclassified (7 sources) Patient encounter status; Translations: [Encounter for gynecological examination with abnormal finding] Onset: 01-17-2018 01-17-2018 Viral infection (2 sources) Disease caused by 2019-nCoV; Translations: [COVID-19] 05-29-2021 Episodic Past or Other Problems Problem Classification Problem Date Documented Date Episodic/Chronic Contraceptive and procreative management (17 sources) Contraception status; Translations: [Intrauterine contraceptive device in situ] Onset: 01-01-2020 Episodic Malaise and fatigue (1 source) Other fatigue; Translations: [Other fatigue] Onset: 11-20-2024 Episodic Other connective tissue disease (1 source) Tendonitis of right shoulder; Translations: [Other enthesopathies, not elsewhere classified] Episodic Other skin disorders (1 source) Eruption; Translations: [Rash and other nonspecific skin eruption] Episodic Unclassified (1 source) Abnormal uterine bleeding (AUB) Unclassified (1 source) Subacute vaginitis Unclassified (1 source) IUD (intrauterine device) in place Results Test Name Value Interpretation Reference Range Facility Absolute lymphocyte countOrd ered By: Brian Dominguez on 11-15-2024 Lymphocytes Auto (Unsp spec) [#/Vol] 1.48 10*3/uL 0.83-4.51 [facility] Absolute neutrophil countOrd ered By: Brian Dominguez on 11-15-2024 Neutrophils (Bld) [#/Vol] 2.5 10*3/uL 2.0-7.7 [facility] Anion gap in Serum or Plasma Ordered By: Brian Dominguez on 11-15-2024 Anion gap [Moles/Vol] 9 mmol/L 5-15 [facility] Automated lymphocyte count a s percentage of total leukocytesOrdered By: carolrocky Dominguez on 11-15-2024 Lymphocytes/100 WBC Auto (Unsp spec) 31.3 % 19-41 [facility] BUN/creatinine ratioOrdered By: Zebulun Beam on 11-15-2024 Urea nitrogen/Creatinine [Mass ratio] 10.1 mg/mg 10- [facility] Basophil percentageOrdered B y: Zebulun Beam on 11-15-2024 Basophils/100 WBC (Bld) 1.3 % High 0-1 [facility] Bilirubin, totalOrdered By: Zebulun Beam on 11-15-2024 Bilirubin [Mass/Vol] 0.24 mg/dL 0.00-1.30 [facility] CBC W/Diff, Automatedon 10-29 Absolute Lymph 1.48 X10 3/uL Normal 0.83-4.51 [facility] Comment on above: Performed By: #### L 100.0100, L506.1001, [id number], [id number] #### [facility] [address] [place], [address] Absolute Neut 2.5 X10 3/uL Normal 2.0-7.7 [facility] Comment on above: Performed By: #### L 100.0100, L506.1001, [id number], [id number] #### [facility] [address] [place], [address] Basophils/100 WBC (Bld) 1.3 % High 0-1 [facility] Comment on above: Performed By: #### L 100.0100, L506.1001, [id number], [id number] #### [facility] [address] [place], [address] Eosinophils/100 WBC (Bld) 6.6 % High 0-5 [facility] Comment on above: Performed By: #### L 100.0100, L506.1001, [id number], [id number] #### [facility] [address] [place], [address] Erythrocyte distribution width (RBC) [Ratio] 12.8 % Normal 11.6-14.6 [facility] Comment on above: Performed By: #### L 100.0100, L506.1001, [id number], [id number] #### [facility] [address] [place], [address] Hematocrit (Bld) [Volume fraction] 38.1 % Normal 37-47 [facility] Comment on above: Performed By: #### L 100.0100, L506.1001, [id number], [id number] #### [facility] [address] [place], [address] Hemoglobin (Bld) [Mass/Vol] 12.6 g/dL Normal 12.0-15.0 [facility] Comment on above: Performed By: #### L 100.0100, L506.1001, [id number], [id number] #### [facility] [address] [place], [address] IG% 0.400 Normal 0.0-0.9 [facility] Comment on above: Result Comment: IG% - Immature Granulocytes (promyelocytes, myelocytes and metamyelocytes) > 1% indicates that a LEFT SHIFT is Present. Performed By: #### L 100.0100, L506.1001, L501.9520, L500.4050 #### [facility] [address] [place], [address] Lymphocytes/100 WBC (Bld) 31.3 % Normal 19-41 [facility] Comment on above: Performed By: #### L 100.0100, L506.1001, [id number], [id number] #### [facility] [address] [place], [address] MCH (RBC) [Entitic mass] 29.0 pg Normal 27.0-32.0 [facility] Comment on above: Performed By: #### L 100.0100, L506.1001, [id number], [id number] #### [facility] [address] [place], [address] MCHC (RBC) [Mass/Vol] 33.1 g/dL Normal 32-36 [facility] Comment on above: Performed By: #### L 100.0100, L506.1001, [id number], [id number] #### [facility] [address] [place], [address] MCV (RBC) [Entitic vol] 87.6 fL Normal 81-99 [facility] Comment on above: Performed By: #### L 100.0100, L506.1001, [id number], [id number] #### [facility] [address] [place], [address] Monocytes/100 WBC (Bld) 7.2 % Normal 0-10 [facility] Comment on above: Performed By: #### L 100.0100, L506.1001, [id number], [id number] #### [facility] [address] [place], [address] Neutrophils/100 WBC (Bld) 53.2 % Normal 47-70 [facility] Comment on above: Performed By: #### L 100.0100, L506.1001, [id number], [id number] #### [facility] [address] [place], [address] Nucleated RBC (Bld) [#/Vol] 0 10*3/uL Normal 0-5 [facility] Comment on above: Performed By: #### L 100.0100, L506.1001, [id number], [id number] #### [facility] [address] [place], [address] Platelet mean volume (Bld) [Entitic vol] 9.1 fL Normal 6.2-12.0 [facility] Comment on above: Performed By: #### L 100.0100, L506.1001, [id number], [id number] #### [facility] [address] [place], [address] Platelets (Bld) [#/Vol] 246 10*3/uL Normal 150-450 [facility] Comment on above: Performed By: #### L 100.0100, L506.1001, [id number], [id number] #### [facility] [address] [place], [address] RBC (Bld) [#/Vol] 4.35 10*6/uL Normal 4.2-5.4 [facility] Comment on above: Performed By: #### L 100.0100, L506.1001, [id number], L500.4050 #### [facility] [address] [place], [address] RDW SD 41.3 fl Normal 35.1-43.9 [facility] Comment on above: Performed By: #### L 100.0100, L506.1001, [id number], [id number] #### [facility] [address] [place], [address] WBC (Bld) [#/Vol] 4.7 10*3/uL Normal 4.4-11.0 [facility] Comment on above: Performed By: #### L 100.0100, L506.1001, [id number], [id number] #### [facility] [address] [place], [address] Carbon dioxide, total [Moles /volume] in Central venous bloodOrdered By: Brian Beam on 11-15-2024 CO2 [Moles/Vol] 24.2 mmol/L 21.0-32.0 [facility] Chloride assayOrdered By: Max Dominguez on 11-15-2024 Chloride [Moles/Vol] 106 mmol/L 98-108 [facility] Comprehensive Metabolic Prof ilon 11-15-2024 Albumin [Mass/Vol] 4.1 g/dL Normal 3.5-5.0 [facility] Comment on above: Performed By: #### L 100.0100, L506.1001, [id number], [id number] #### [facility] [address] [place], [address] Albumin/Globulin [Mass ratio] 1.7 {ratio} Normal 0.9-2.4 [facility] Comment on above: Performed By: #### L 100.0100, L506.1001, [id number], [id number] #### [facility] [address] [place], [address] ALK PHOS 67 U/L Normal 35-104 [facility] Comment on above: Performed By: #### L 100.0100, L506.1001, [id number], [id number] #### [facility] [address] [place], [address] ALT [Catalytic activity/Vol] 6 U/L Normal <=34 [facility] Comment on above: Performed By: #### L 100.0100, L506.1001, L501.9520, L500.4050 #### [facility] [address] [place], [address] AST [Catalytic activity/Vol] 17 U/L Normal <=31 [facility] Comment on above: Performed By: #### L 100.0100, L506.1001, [id number], [id number] #### [facility] [address] [place], [address] Bilirubin [Mass/Vol] 0.24 mg/dL Normal 0.00-1.30 [facility] Comment on above: Performed By: #### L 100.0100, L506.1001, [id number], [id number] #### [facility] [address] [place], [address] BUN/CRE 10.1 RATIO Normal 10-20 [facility] Comment on above: Performed By: #### L 100.0100, L506.1001, [id number], [id number] #### [facility] [address] [place], [address] Calcium [Mass/Vol] 8.9 mg/dL Normal 7.6-11.0 [facility] Comment on above: Performed By: #### L 100.0100, L506.1001, [id number], [id number] #### [facility] [address] [place], [address] Chloride [Moles/Vol] 106 mmol/L Normal 98-108 [facility] Comment on above: Performed By: #### L 100.0100, L506.1001, [id number], [id number] #### [facility] [address] [place], [address] CO2 [Moles/Vol] 24.2 mmol/L Normal 21.0-32.0 [facility] Comment on above: Performed By: #### L 100.0100, L506.1001, [id number], [id number] #### [facility] [facility] [address] [place], [address] Creatinine [Mass/Vol] 0.79 mg/dL Normal 0.70-1.20 [facility] Comment on above: Performed By: #### L 100.0100, L506.1001, L501.9520, L500.4050 #### [facility] [address] [place], [address] GAP 9 Normal 5-15 [facility] Comment on above: Performed By: #### L 100.0100, L506.1001, L501.9520, L500.4050 #### [facility] [address] [place], [address] GFR/1.73 sq M.predicted among non-blacks MDRD (S/P/Bld) [Vol rate/Area] 99 mL/min/{1.73_m2} Normal >60 [facility] Comment on above: Result Comment: mL/m in/1.73m2 CKD-EPI Creatinine Equation (2020) Performed By: #### L 100.0100, L506.1001, L501.9520, L500.4050 #### [facility] [address] [place], [address] Globulin (S) [Mass/Vol] 2.5 g/dL Normal 2.2-4.2 [facility] Comment on above: Performed By: #### L 100.0100, L506.1001, L501.9520, L500.4050 #### [facility] [address] [place], [address] Glucose [Mass/Vol] 72 mg/dL Normal 70-99 [facility] Comment on above: Performed By: #### L 100.0100, L506.1001, L501.9520, L500.4050 #### [facility] [address] [place], [address] Potassium [Moles/Vol] 3.7 mmol/L Normal 3.3-5.1 [facility] Comment on above: Performed By: #### L 100.0100, L506.1001, L501.9520, L500.4050 #### [facility] [address] [place], [address] Sodium [Moles/Vol] 139 mmol/L Normal 133-145 [facility] Comment on above: Performed By: #### L 100.0100, L506.1001, L501.9520, L500.4050 #### [facility] [address] [place], [address] T PROT 6.5 g/dL Normal 5.9-8.4 [facility] Comment on above: Performed By: #### L 100.0100, L506.1001, L501.9520, L500.4050 #### [facility] [address] [place], [address] Urea nitrogen [Mass/Vol] 8 mg/dL Normal 4-19 [facility] Comment on above: Performed By: #### L 100.0100, L506.1001, L501.9520, L500.4050 #### [facility] [address] [place], [address] Eosinophil percentageOrdered By: Shanellun Beam on 11-15-2024 Eosinophils/100 WBC (Bld) 6.6 % High 0-5 [facility] Erythrocyte distribution wid th ratioOrdered By: Zebulun Beam on 11-15-2024 Erythrocyte distribution width (RBC) [Ratio] 12.8 % 11.6-14.6 [facility] Erythrocyte distribution wid th standard deviationOrdered By: Zebulun Beam on 11-15-2024 Erythrocyte distribution width (RBC) [Ratio] 41.3 fl 35.1-43.9 [facility] Glomerular filtration rate ( GFR) estimation/1.73 sq m using serum, plasma, or whole bOrdered By: Shanellun Beam on 11-15-2024 GFR/1.73 sq M.predicted among non-blacks MDRD (S/P/Bld) [Vol rate/Area] 99 mL/min/{1.73_m2} >60 [facility] Comment on above: mL/min/1.73m2 CKD-EP I Creatinine Equation (2020) Hematocrit Auto (Bld) [Volum e fraction]Ordered By: Mohitn Beam on 11-15-2024 Hematocrit (Bld) [Volume fraction] 38.1 % 37-47 [facility] Hemoglobin measurementOrdere d By: Zebulun Beam on 11-15-2024 Hemoglobin (Bld) [Mass/Vol] 12.6 g/dL 12.0-15.0 [facility] Immature granulocytes/100 WB C Auto (Bld)Ordered By: Zebulun Beam on 11-15-2024 Immature granulocytes/100 WBC (Bld) 0.400 % 0.0-0.9 [facility] Comment on above: IG% - Immature Granu locytes (promyelocytes, myelocytes and metamyelocytes) > 1% indicates that a LEFT SHIFT is Present. Laboratory - Chemistry and C hemistry - challengeOrdered By: Zebulun Beam on 11-15-2024 AST [Catalytic activity/Vol] 17 U/L <32 [facility] MCV (mean corpuscular volume ) determinationOrdered By: Zebulun Beam on 11-15-2024 MCV (RBC) [Entitic vol] 87.6 fL 81-99 [facility] Mean corpuscular hemoglobin (MCH) determinationOrdered By: Zebulun Beam on 11-15-2024 MCH (RBC) [Entitic mass] 29.0 pg 27.0-32.0 [facility] Mean corpuscular hemoglobin concentration (MCHC) determinationOrdered By: Zebulun Beam on 11-15-2024 MCHC (RBC) [Mass/Vol] 33.1 g/dL 32-36 [facility] Mean platelet volume determi nationOrdered By: Zebulun Beam on 11-15-2024 Platelet mean volume (Bld) [Entitic vol] 9.1 fL 6.2-12.0 [facility] Monocyte percentageOrdered B y: Zebulun Beam on 11-15-2024 Monocytes/100 WBC (Bld) 7.2 % 0-10 [facility] Neutrophil percentageOrdered By: Zebulun Beam on 11-15-2024 Neutrophils/100 WBC (Bld) 53.2 % 47-70 [facility] Nucleated red blood cell per centageOrdered By: Zebulun Beam on 11-15-2024 Nucleated RBC/100 WBC (Bld) [Ratio] 0 % 0-5 [facility] Platelet countOrdered By: Max Dominguez on 11-15-2024 Platelets (Bld) [#/Vol] 246 10*3/uL 150-450 [facility] Potassium measurement (mass/ volume)Ordered By: Brian Dominguez on 11-15-2024 Potassium (Unsp spec) [Mass/Vol] 3.7 mmol/L 3.3-5.1 [facility] RBC Auto (Bld) [#/Vol]Ordere d By: Brian Dominguez on 11-15-2024 RBC (Bld) [#/Vol] 4.35 10*6/uL 4.2-5.4 [facility] Serum creatinine measurement (mass/volume)Ordered By: Brian Dominguez on 11-15-2024 Creatinine [Mass/Vol] 0.79 mg/dL 0.70-1.20 [facility] Serum globulin measurementOr dered By: Brian Dominguez on 11-15-2024 Globulin (S) [Mass/Vol] 2.5 g/dL 2.2-4.2 [facility] Serum glucose measurement (m ass/volume)Ordered By: Brian Dominguez on 11-15-2024 Glucose [Mass/Vol] 72 mg/dL 70-99 [facility] Serum or plasma alanine saldana otransferase (ALT) measurementOrdered By: Brian Dominguez on 11-15-2024 ALT [Catalytic activity/Vol] 6 U/L <35 [facility] Serum or plasma albumin jannie urement (mass/volume)Ordered By: Brian Dominguez on 11-15-2024 Albumin [Mass/Vol] 4.1 g/dL 3.5-5.0 [facility] Serum or plasma albumin/glob ulin mass ratioOrdered By: Brian Dominguez on 11-15-2024 Albumin/Globulin [Mass ratio] 1.7 {ratio} 0.9-2.4 [facility] Serum or plasma alkaline cami sphatase measurementOrdered By: Brian Dominguez on 11-15-2024 ALP [Catalytic activity/Vol] 67 U/L 35-104 [facility] Serum or plasma calcium jannie urement (mass/volume)Ordered By: Brian Dominguez on 11-15-2024 Calcium [Mass/Vol] 8.9 mg/dL 7.6-11.0 [facility] Serum or plasma urea nitroge n measurement (mass/volume)Ordered By: Mohitn Beam on 11-15-2024 Urea nitrogen [Mass/Vol] 8 mg/dL 4-19 [facility] Sodium levelOrdered By: Shanel ankit Beam on 11-15-2024 Sodium [Moles/Vol] 139 mmol/L 133-145 [facility] TSH DL <= 0.005 mIU/L QnOrde red By: Shanellun Beam on 11-15-2024 TSH Qn 1.250 uIU/mL 0.300-4.200 [facility] Thyroid Stim Hormone (TSH)on 11-15-2024 TSH 1.250 uIU/mL Normal 0.300-4.200 [facility] Comment on above: Performed By: #### L 100.0100, L506.1001, L501.9520, L500.4050 #### [facility] [address] [place], [place], [id number] Total proteinOrdered By: Jass Dominguez on 11-15-2024 Protein [Mass/Vol] 6.5 g/dL 5.9-8.4 [facility] Vitamin D,25 Hydroxyon 11-15 Vitamin D 25-OH 38.5 ng/mL Normal 30-100 [facility] Comment on above: Result Comment: Sanam min D Status Deficiency: <20 ng/mL (50nmol/L) Insufficiency: 20-30 ng/mL (50-75 nmol/L) Sufficiency: 30-100 ng/mL (75-250 nmol/L) Toxicity: >100 ng/mL (>250 nmol/L) Performed By: #### L 100.0100, L506.1001, L501.9520, L500.4050 #### [facility] [address] [place], [address] White blood cell (WBC) count Ordered By: Brian Dominguez on 11-15-2024 WBC (Bld) [#/Vol] 4.7 10*3/uL 4.4-11.0 [facility] 36on 02-03-2024 36 Talked to patient an d relayed message and she verbalized understanding, patient wanted to make an appointment with doctor so she is now scheduled for 05/09/24 [facility] 36 S: Patient spoke serena benoit [facility] nurse regarding Ongoing nausea. Diagnosed with vertigo. B: Onset of symptoms/concern couple of month A: Would like to request medication for nausea, med she has helps with dizziness but not the nausea, ENT said it is vertigo, is on Meclizine currently. Nausea comes and goes, usually worse at night. Is able to eat and drink, keeping fluids down, urinating normally. Saw ENT in mid December. Also going through Fertility testing, egg reserves are low, had been advised to take co Q 10-125 mg, truniagen 300mg, and pterostilbene 150mg. Would like to know if she could get prescriptions for these supplements as well. Denies: difficulty breathing, chest pain, vomiting R: RN will send message to office with medication requests. Advised office has 24-48 hours to respond to medication requests. Allergies and pharmacy verified. Patient understands care advice. No further needs at this time. Patient instructed to call back with new or worsening symptoms. Reason for Disposition Nausea is a chronic symptom (recurrent or ongoing AND present > 4 weeks) Protocols used: [id number] [facility] 36on 01-20-2024 36 Recent Visits Date Type Provider Dept 12/06/23 Office Visit SAMMI Matt CNP [facility] [place] Showing recent visits within past 365 days and meeting all other requirements Future Appointments No visits were found meeting these conditions. Showing future appointments within next 90 days and meeting all other requirements Requested Prescriptions Pending Prescriptions Disp Refills meclizine (Antivert) 12.5 MG tablet [Pharmacy Med Name: Meclizine HCl Oral Tablet 12.5 MG] 30 tablet 0 Sig: Take 1 tablet (12.5 mg) by mouth 3 times daily as needed for dizziness. Provider: SAMMI Moreland CNP Overdue for visit: Yes If yes - patient scheduled? No Most recent labs completed in chart? N/A Verified pharmacy: yes Verified day(s) supplied: yes Verified refill(s) needed (previous prescription showing no refills in chart): Yes Have you received any controlled medications from any other provider? N/A None Normal [facility] 36on 12-06-2023 36 Notified, she states they already called her and scheduled her for 12/16/23. Normal [facility] Office Visiton 12-06-2023 Follow-up visit [id number] Scott Gutierrez 1985 F Date Provider Department Center 12/06/2023 [id number] VELAZQUEZ [facility] Family History Problem Relation Age of Onset Cancer Mother Comments: bladder and leukemia No Known Problems Father Comments: migraines and edmund No Known Problems Sister No Known Problems Brother Colon cancer Maternal Grandmother Family Status - Relation Status Age at Mother Alive Father Alive Sister Alive Brother Alive Maternal Grandmother Level of Service:92683 MT OFFICE/OUTPATIENT ESTABLISHED LOW MDM 20 MIN Reason for Visit and Comments: Dizziness [338647] Nausea [70] - Was very sick last April and since then have had nausea and dizzy but they are getting worse Normal [facility] Progress Noteon 12-06-2023 Progress Note Patient verified by last name and date of . Normal [facility] Progress Note 12/06/2023 Bree Gutierrez (: 1985) is a 38 y.o. female , POD scheduled, Established patient, here for evaluation of the following chief complaint(s): Dizziness and Nausea (Was very sick last April and since then have had nausea and dizzy but they are getting worse ) ASSESSMENT/PLAN: 1. Vertigo Assessment & Plan: No red flags. Will treat for likely benign paroxysmal positional vertigo. Refer to ENT for further evaluation if not improving with current interventions. Orders: - meclizine (Antivert) 12.5 MG tablet; Take 1 tablet (12.5 mg) by mouth 3 times daily as needed for dizziness., Starting Wed12/06/2023, Until Wed12/05/2024 at 2359, Normal - methylPREDNISolone (Medrol Dospak) 4 MG tablets; Take as directed on package., Normal - External referral to ENT Follow up if symptoms worsen or fail to improve. SUBJECTIVE/OBJECTIVE: HPI - Bree Gutierrez (: 1985) is a 38 y.o. female , Established patient of Dr. Luis, here for evaluation of the following chief complaint(s): Dizziness and Nausea (Was very sick last April and since then have had nausea and dizzy but they are getting worse ) Presents with significant other Alexx. reports was sick last April with a respiratory illness and has been getting intermittent dizziness and mild nausea. Gets easily triggered by motion and sudden movement. Headaches intermittently more often in the past month, similar to previous headaches. Usually last a few hours to a day. Will take exedrin for her headaches with good relief of symptoms. Denies any current respiratory symptoms, no ear pain or pressure. Patient is legally blind. Reports she can see color and shapes but not clearly. Prior to Admission medications Medication Sig Start Date End Date Taking? Authorizing Provider cetirizine (ZyrTEC) 10 MG tablet Take 1 tablet (10 mg) by mouth every morning. 10/28/23 Yes Matias Harris PA-C fluticasone (Flonase) 50 MCG/ACT nasal spray Administer 2 sprays into each nostril daily. Shake gently. Before first use, prime pump. After use, clean tip and replace cap. 10/28/23 10/27/24 Yes Matias Harris PA-C Bvwhnz-MwWcz-Gbsu-FA- DHA w/o A (Prenate DHA) 18-0.6-0.4-300 MG capsule Take 1 capsule by mouth daily. 06/19/22 Yes Historical Provider, Diclofenac Sodium (Voltaren) 1 % gel Apply 2 g topically 2 times daily. Patient not taking: Reported on 12/01/2023 08/17/22 Matias Harris PA-C pantoprazole (ProtoNix) 40 MG EC tablet Take 40 mg by mouth every morning (before breakfast). 08/12/21 Historical Provider, Review of Systems Constitutional: Negative for activity change, chills, fatigue and fever. HENT: Negative. Respiratory: Negative. Cardiovascular: Negative. Neurological: Positive for dizziness and headaches. Negative for syncope, weakness and light-headedness. Vitals: 12/06/23 0943 BP: 112/69 Pulse: 78 Temp: 36.6 ?C (97.9 ?F) SpO2: 97% Weight: 143 lb 9.6 oz (65.1 kg) Height: 5' 1" (1.549 m) Physical Exam Constitutional: General: She is not in acute distress. Appearance: Normal appearance. She is not ill-appearing. HENT: Head: Normocephalic and atraumatic. Right Ear: Tympanic membrane normal. Left Ear: Tympanic membrane normal. Nose: Nose normal. Mouth/Throat: Mouth: Mucous membranes are moist. Pharynx: Oropharynx is clear. No posterior oropharyngeal erythema. Eyes: Conjunctiva/sclera: Conjunctivae normal. Comments: Blind. Cardiovascular: Rate and Rhythm: Normal rate and regular rhythm. Pulses: Normal pulses. Heart sounds: Normal heart sounds. Pulmonary: Effort: Pulmonary effort is normal. Breath sounds: Normal breath sounds. Neurological: Mental Status: She is alert. An electronic signature was used to authenticate this note. Volodymyr Velazquez, SAMMI - MARIAM 12/06/2023 12:26 PM [facility] 36on 11-29-2023 36 Triage message reviewed with clinical staff. Patient appointment confirmed. PCP will assess at appointment visit. [facility] 36 S Patient calling with dizziness B April worse the last month A Patient calling with intermittent dizziness was sick back in April and has been having intermittent dizziness and nausea ever since. Intermittent and some times when laying. Moderated intermittent BAUTISTA's, relieved by Excedrin. Denies vision changes CP SOB. Has not felt as though she would pass out. R Nothing in pcps office. Needs Wednesday or Wednesday appt. POD scheduled with Volodymyr Wednesday in [place] office. Location information given. Advised ED for severe symptoms and calling back with ongoing concerns. Thank you Reason for Disposition [1] MODERATE dizziness (e.g., vertigo; feels very unsteady, interferes with normal activities) AND [2] has NOT been evaluated by doctor (or BOX INSPECTOR/PA) for this Protocols used: Dizziness [facility] 36 Ordering provider: Dr. Maza Date of last office visit: 08.05.22 Date of next office visit: None Updated/Validated preferred pharmacy: Yes Patient instructed to contact the pharmacy prior to picking up the medication: Yes (1) Medication name: fluticasone (Flonase) 50 MCG/ACT nasal spray Medication dosage: 50 mcg (Micrograms) Monthly quantity needed: 16 g How many day supply requestin days Medication route: nasal (nose) Medication administration time(s): daily If taking medication PRN, reason for taking medication: N/A If this is a controlled substance do you receive this or any other controlled medication from any other doctor or facility: N/A Date of last refill (see medication tab): 02.24.23 (2) Medication name: cetirizine (ZyrTEC) 10 MG tablet Medication dosage: 10 mg (Miligrams Monthly quantity needed: 90 How many day supply requestin days Medication route: oral (PO) Medication administration time(s): daily If taking medication PRN, reason for taking medication: N/A If this is a controlled substance do you receive this or any other controlled medication from any other doctor or facility: No Date [facility] (see medication tab): [facility] Office Visit (UCWSTR ) BREE GUTIERREZ ([id number]) 1985 F [place] Date Time Provider Department 06/13/23 3:15 PM GINA STRICKLAND [facility] During your visit today, we recorded the following information about you: Temperature Pulse Respiration Blood pressure 97.7 degrees 88/minute 16/minute 110/68 Weight 66.2 kg Gina Strickland PA-C 06/13/2023 3:28 PM Addendum This note was created using NoteWriter. Subjective Bree Gutierrez is a 38 year old female. HPI Patient presents with a chief complaint of right ear pain. She has had problems with earwax before and was putting some drops in her ears but did not seem to be helping. States it started to get painful a few days ago so came in for evaluation. She not had any drainage of the ear. She did have a cold about 2 weeks ago but that is resolved. No fever. Some muffled hearing. Review of Systems Constitutional: Negative for fever. HENT: Positive for ear pain and hearing loss. Negative for congestion, ear discharge, rhinorrhea, sinus pressure, sinus pain and sore throat. Respiratory: Negative for cough. Cardiovascular: Negative. Gastrointestinal: Negative. Genitourinary: Negative. Musculoskeletal: Negative. All other systems reviewed and are negative. PAST MEDICAL HISTORY Diagnosis Date PMH - PAST MEDICAL HISTORY OF lebers congential ammourious PMH - PAST MEDICAL HISTORY OF skin disorder PMH - PAST MEDICAL HISTORY OF legally blind Current Outpatient Medications Medication Sig Dispense Refill cetirizine (ZYRTEC) 10 mg tablet Take 10 mg by mouth once daily. VICODIN ES 7.5 MG-750 MG TAB take one tablet q 4-6 hours prn pain (Patient not taking: Reported on 06/13/2023) 35 0 PERCOCET 5 MG-325 MG TAB take one tablet po q 4-6 hours prn pain (Patient not taking: Reported on 06/13/2023) 35 0 COMPAZINE 5 MG TAB take one tablet po q 6 hours prn nausea (Patient not taking: Reported on 06/13/2023) 20 1 FELDENE 20 MG CAP take one tablet daily (Patient not taking: Reported on 06/13/2023) 10 0 No current facility-administered medications for this visit. No past surgical history on file. FAMILY HISTORY Problem Relation Age of Onset Colon Cancer Maternal Grandmother colon Diabetes Maternal Grandmother Stroke Paternal Grandfather Hypertension Father Lipids Father Social History Tobacco Use Smoking status: Never Substance Use Topics Alcohol use: No Objective BP 110/68 Pulse 88 Temp 36.5 ?C (97.7 ?F) Resp 16 Wt 66.2 kg (146 lb) LMP 10/12/2005 SpO2 100% Physical Exam Vitals reviewed. Constitutional: Appearance: Normal appearance. HENT: Head: Normocephalic and atraumatic. Right Ear: There is impacted cerumen. Left Ear: There is impacted cerumen. Ears: Comments: Bilateral cerumen impaction. After flushed by nursing staff right external auditory canal swollen and erythematous. TM intact. Normal middle ear. Left ear unremarkable after flushing. TM intact. Nose: Nose normal. Skin: General: Skin is warm and dry. Neurological: Mental Status: She is alert. Assessment and Plan ASSESSMENT/PLAN: 1. Bilateral impacted cerumen - ICD9: 380.4, ICD10: H61.23 (primary diagnosis) Flushed here by nursing staff and cleared. - AMBULATORY EAR LAVAGE/IRRIGATION 2. Acute otitis externa of right ear, unspecified type - ICD9: 380.10, ICD10: H60.501 Will treat with Cortisporin. Follow-up if not improving. JOSE L Nascimento Melissa 06/13/2023 3:24 PM Signed Ambulatory Ear Lavage Pre-treatment: Warm water Treatment: Both ears Equipment and Irrigation solution and Volume used: Single use syringe with single use irrigation tip Water Return flow appearance: Brown Yellow Patient tolerated procedure: yes Tympanic membrane assessment: Tympanic membrane assessed by LIP pre and post procedure Sharron Aguilar Allergies As of Date: 06/13/2023 (No Known Allergies) Date Reviewed: 06/13/2023 Reviewed by: Sharron Aguilar - Fully Assessed Reason for Visit: Ear Pain [817] Cmt: right with drainage x 1 week off and on Primary Visit Diagnosis:Bilateral impacted cerumen [H61.23] Other Visit Diagnosis:Acute otitis externa of right ear, unspecified type [H60.501] Order(s):AMBULATORY EAR LAVAGE/IRRIGATION [[id number]] Order #: [id number] kmaaxmzg-cfkucnysx-le drocortisone (CORTISPORIN) 3.5-10,000-1 mg/mL-unit/mL-% otic suspensionUse 3 Drops in the right ear four times daily for 7 days.Disp: 10 mLRfl: 0 Prescriptions as of 06/13/2023 - cetirizine (ZYRTEC) 10 mg tablet Take 10 mg by mouth once daily. - rbnvtmwm-uwhbezpvx-tz drocortisone (CORTISPORIN) 3.5-10,000-1 mg/mL-unit/mL-% otic suspension Use 3 Drops in the right ear four times daily for 7 days. - VICODIN ES 7.5 MG-750 MG TAB take one tablet q 4-6 hours prn pain - PERCOCET 5 MG-325 MG TAB take one tablet po q 4-6 hours prn pain - COMPAZINE 5 MG TAB (more content not included)... Normal [facility] 36on 02-24-2023 36 Pt advised that nose spray was sent. [facility] 36 Spoke to patient and she would like to take the nasal spray and would like it sent to [facility] in [place]. [facility] 36on 02-22-2023 36 Patient was left a detailed message and to return call to the office to let us know if she wants to try a nasal spray. [facility] 36 Please assist [facility] 36 S: Patient spoke [facility] nurse regarding medication question regarding Zyrtec B: No new or worsening symptoms at this time. A: The patient states that she typically has seasonal allergies in the fall and she would like to know if she can take more than 1 Zyrtec per day. R: According to the dosage table the adult dose is 10mg per day. Offered to conference her through to speak with her pharmacist. She declined stating she will call him later. No further needs at this time. Patient instructed to call back with new or worsening symptoms. Reason for Disposition ? Information only question and nurse able to answer Protocols used: Information Only Call - No [id number] [facility] - Microbiology an d Antimicrobial susceptibilityOrdered By: Erick Meeks on 12-17-2020 Gwendolyn sp DNA Probe+sig amp Ql (Vag fld) Negative Negative [facility] G. vaginalis DNA Probe+sig amp Ql (Vag fld) Negative Negative [facility] T. vaginalis DNA Probe+sig amp Ql (Vag fld) Negative Negative [facility] VAGINITIS DNA PROBESOrdered By: Erick Meeks on 12-17-2020 Interpretation and review of laboratory results Normal [facility] US TRANSVAGINALon 12-16-2020 US TRANSVAGINAL IUD Report IUD is visualized in proper placement. Fibroid measuring 3.43 x 3.48 x 2.81 cm is visualized pushing up on the endometrium, making it difficult to view IUD strings for removal. National Stormwater Leader: Natan Mccord RDMS Dictated by: ERICK MEEKS on WedDec 16, 2020 12:16:16 PM EDT Transcribed by: ERICK MEEKS on WedDec 16, 2020 12:16:16 PM EDT Finalized by: ERICK MEEKS on WedDec 16, 2020 12:16:16 PM EDT Normal [facility] Ambulatory Comment on above: Order Comment: This back office order was created through the Ultrasound Visit Navigator section. US TRANSVAGINALOrdered By: Salina Meeks on 12-16-2020 IUD Report IUD is visualized in proper placement. Fibroid measuring 3.43 x 3.48 x 2.81 cm is visualized pushing up on the endometrium, making it difficult to view IUD strings for removal. National Stormwater Leader: [facility]INALon 07-03-2020 US TRANSVAGINAL . DIRECTOR OF SALES AND MARKETING Ultrasound Report Age: 35 y.o. /Para: LMP: Indication for ultrasound: Pelvic pain, IUD Uterus: Length (cm): 8.9 Height (cm): 4.03 Width (cm): 5.24 Endometrial Stripe (mm): 6.3 mm Fibroids: Yes 1.89 x 2.04 x 2.18 cm Left posterior, 1.55 x 1.93 x 1.55 cm Midline posterior Right Ovary: Dimension 1 (cm): 3.19 Dimension 2 (cm): 2.76 Dimension 3 (cm): 2.08 Left Ovary Dimension 1 (cm): 4.15 Dimension 2 (cm): 2.74 DImension 3 (cm): 2.75 Cul de sac: Small amount of free fluid Impression/Notes: Anteverted heterogeneous with endometrium measuring 6.3 mm. Fibroids are visualized left posterior 1.89 x 2.04 x 2.18 cm, and midline posterior 1.55 x 1.93 x 1.55 cm. Right ovary visualized. Left ovary visualized with cyst measuring 1.80 x 1.07 x 1.37 cm. Small amount of free fluid in cul-de-sac.IUD is visualized in proper placement. National Stormwater Leader: Natan Mccord [facility] Dictated by: ERICK MEEKS on WedJul 03, 2020 2:13:18 PM EST Transcribed by: ERICK MEEKS on WedJul 03, 2020 2:13:18 PM EST Finalized by: ERICK MEEKS on WedJul 03, 2020 2:13:18 PM EST [facility] Comment on above: Order Comment: This back office order was created through the Ultrasound Visit Navigator section. US Pelvis Limitedon 04-13-[address] National Stormwater Leader: Goldie Hathaway RDMS Invalid Interpretation Code Live[facility] US Pelvis Limitedon 07-08-19 18 US Pelvis Limited IUD visualized in endo., appears in place Goldie Hathaway RDMS Invalid Interpretation Code [employer] [facility] Vital Signs Date Time Vital Sign Value Performing Clinician Facility 12-06-2023 09:43-0400 Body height 154.9 cm Volodymyr Bridenthal APPLIANCE FIXER - [employer]ER Work Phone: [facility] [employer] 12-06-2023 09:43-0400 Body mass index (BMI) [Ratio] 27.13 kg/m2 Volodymyr Bridenthal APPLIANCE FIXER - [employer]ER Work Phone: [facility] [employer] 12-06-2023 09:43-0400 Body temperature 97.9 [degF] Volodymyr Bridenthal APPLIANCE FIXER - [employer] Work Phone: [facility] [employer] 12-06-2023 09:43-0400 Body weight 65.14 kg Volodymyr Bridenthal APPLIANCE FIXER - [employer] Work Phone: [facility] [employer] 12-06-2023 09:43-0400 Diastolic blood pressure 69 mm[Hg] Volodymyr Bridenthal APPLIANCE FIXER - [employer] Work Phone: [facility] [employer] 12-06-2023 09:43-0400 Heart rate 78 /min Volodymyr Bridenthal APPLIANCE FIXER - [employer] Work Phone: [facility] [employer] 12-06-2023 09:43-0400 SaO2% (BldA) [Mass fraction] 97 % Volodymyr Bridenthal APPLIANCE FIXER - [employer] Work Phone: [facility] [employer] 12-06-2023 09:43-0400 Systolic blood pressure 112 mm[Hg] Volodymyr Bridenthal APPLIANCE FIXER - [employer]ER Work Phone: [facility] [employer] 08-05-2022 08:37-0500 Body height 154.9 cm Matias Harris PA-C Work Phone: [facility] [employer] 08-05-2022 08:37-0500 Body mass index (BMI) [Ratio] 26.6 kg/m2 Matias Riggso PA-C Work Phone: [facility] [employer] 08-05-2022 08:37-0500 Body temperature 98.4 [degF] Matias Riggso PA-C Work Phone: [facility] [employer] 08-05-2022 08:37-0500 Body weight 63.87 kg Matias Harris PA-C Work Phone: [facility] [employer] 08-05-2022 08:37-0500 Diastolic blood pressure 87 mm[Hg] Matias Riggso PA-C Work Phone: [facility] [employer] 08-05-2022 08:37-0500 Heart rate 93 /min Matias Riggso PA-C Work Phone: [facility] [employer] 08-05-2022 08:37-0500 SaO2% (BldA) [Mass fraction] 100 % Matias Riggso PA-C Work Phone: [facility] [employer] 08-05-2022 08:37-0500 Systolic blood pressure 135 mm[Hg] Matias Riggso PA-C Work Phone: [facility] [employer] 12-16-2020 11:02-0400 Body height 154.9 cm Erick Meeks DO Work Phone: [facility] 12-16-2020 11:02-0400 Body mass index (BMI) [Ratio] 28.15 kg/m2 Erick Meeks DO Work Phone: [facility] 12-16-2020 11:02-0400 Body weight 67.59 kg Erick Meeks DO Work Phone: [facility] 12-16-2020 11:02-0400 Diastolic blood pressure 79 mm[Hg] Erick Meeks DO Work Phone: [facility] 12-16-2020 11:02-0400 Heart rate 80 /min Erick Meeks DO Work Phone: [facility] 12-16-2020 11:02-0400 Systolic blood pressure 119 mm[Hg] Erick Meeks DO Work Phone: [facility] 10-14-2020 09:34-0400 Body height 154.9 cm Erick Meeks DO Work Phone: [facility] 10-14-2020 09:34-0400 Body mass index (BMI) [Ratio] 27.85 kg/m2 Erick Meeks DO Work Phone: [facility] 10-14-2020 09:34-0400 Body weight 66.86 kg Erick Meeks DO Work Phone: [facility] 10-14-2020 09:34-0400 Diastolic blood pressure 75 mm[Hg] Erick Meeks DO Work Phone: [facility] 10-14-2020 09:34-0400 Heart rate 83 /min Erick Meeks DO Work Phone: [facility] 10-14-2020 09:34-0400 Systolic blood pressure 116 mm[Hg] Erick Meeks DO Work Phone: [facility] 08-14-2019 09:49-0400 BMI (Body Mass Index) 25.89 kg/m2 Erick Meeks [facility] 08-14-2019 09:49-0400 Body weight 62.14 kg Erick Meeks [facility] 08-14-2019 09:49-0400 BP Diastolic 75 mm[Hg] Erick Meeks [facility] 08-14-2019 09:49-0400 BP Systolic 109 mm[Hg] Erick Meeks [facility] 08-14-2019 09:49-0400 Height 154.9 cm Erick Meeks [facility] 08-14-2019 09:49-0400 Pulse (Heart Rate) 87 /min Erick Meeks [facility] 04-13-2018 10:40-0500 BMI (Body Mass Index) 24.87 kg/m2 Erick Meeks [facility] 04-13-2018 10:40-0500 BP Diastolic 73 mm[Hg] Erick Meeks [facility] 04-13-2018 10:40-0500 BP Systolic 114 mm[Hg] Erick Meeks [facility] 04-13-2018 10:40-0500 Height 154.9 cm Erick Meeks [facility] 04-13-2018 10:40-0500 Pulse (Heart Rate) 76 /min Erick Meeks [facility] 04-13-2018 10:40-0500 Weight 59.69 kg Erick Meeks [facility] 02-17-2018 08:31-0400 BMI (Body Mass Index) 24.49 kg/m2 Erick Meeks [facility] 02-17-2018 08:31-0400 BP Diastolic 75 mm[Hg] Erick Meeks [facility] 02-17-2018 08:31-0400 BP Systolic 115 mm[Hg] Erick [facility] 02-17-2018 08:31-0400 Height 154.9 cm Erick [facility] 02-17-2018 08:31-0400 Weight 58.79 kg Erick [facility] 01-17-2018 11:49-0400 BMI (Body Mass Index) 24.87 kg/m2 Erick [facility] 01-17-2018 11:49-0400 BP Diastolic 72 mm[Hg] Erick [facility] 01-17-2018 11:49-0400 BP Systolic 113 mm[Hg] Erick [facility] 01-17-2018 11:49-0400 Height 154.9 cm Erick [facility] 01-17-2018 11:49-0400 Pulse (Heart Rate) 81 /min Erick [facility] 01-17-2018 11:49-0400 Weight 59.69 kg Erick Meeks [facility] 07-08-2017 09:30-0500 BP Diastolic 75 mm[Hg] Erick Meeks [facility] Work Phone: 07-08-2017 09:30-0500 BP Systolic 115 mm[Hg] Erick Meeks [facility] Work Phone: 07-08-2017 09:30-0500 Pulse (Heart Rate) 75 /min Erick Meeks [facility] Work Phone: 07-08-2017 09:30-0500 Weight 56.25 kg Erick Meeks [facility] Work Phone: Encounters Encounter Date Encounter Type Care Provider Facility Start: 05-01-2025 ambulatory Zebulun Beam VSC Facili ty:[facility] Start: 12-14-2024 End: 12-14-2024 ambulatory Zebulun Beam BOX INSPECTOR-C Work Phone: -[facility] Start: 12-14-2024 End: 12-14-2024 Patient encounter procedure Zebulun Beam BOX INSPECTOR-C -[facility] Work Phone: Start: 12-14-2024 End: 12-14-2024 ambulatory Zebulun Beam VSC Facility:[facility] Start: 11-15-2024 End: 11-15-2024 ambulatory Zebulun Beam BOX INSPECTOR-C Work Phone: [facility] Work Phone: Start: 11-15-2024 End: 11-15-2024 Patient encounter procedure Zebulun Beam BOX INSPECTOR-C -Laboratory [facility] Negron Start: 11-15-2024 End: 11-15-2024 ambulatory Zebulun Beam VSC Facility:[facility] Start: 01-20-2024 End: 01-20-2024 Refill Volodymyr Bridenthal APPLIANCE FIXER - [employer]ER Work Phone: [facility] Comment on above: Vertigo Start: 12-06-2023 End: 12-06-2023 ambulatory [facility] Start: 12-06-2023 End: 12-06-2023 Office outpatient visit 15 minutes Volodymyr Bridenthal APPLIANCE FIXER - [employer] FRIER Work Phone: [facility] Comment on above: Vertigo (Primary Dx) Start: 11-29-2023 End: 11-29-2023 [facility] Start: 11-29-2023 End: 11-29-2023 [facility] Start: 10-28-2023 Refill George F Aye lla DO Work Phone: [facility] Start: 06-13-2023 End: 06-13-2023 ambulatory Facility:[facility] Start: 02-22-2023 ambulatory Montez Quigley RN [facility] Clinical Communication Start: 02-22-2023 Patient encounter [facility] Start: 12-11-2022 Refill George F Aye lla DO Work Phone: [facility] Clinical Communication Start: 08-05-2022 End: 08-05-2022 Office outpatient visit 15 minutes Matias Harris PA-C Work Phone: [facility] Comment on above: Right shoulder tendo nitis (Primary Dx); Rash; Amanda's congenital amaurosis Start: 08-03-2022 ambulatory Olga Cheung RN [facility] Clinical Communication Start: 08-03-2022 Patient encounter procedure Olga Cheung RN [facility] Clinical Communication Start: 08-03-2022 Telephone encounter Olag christian RN [facility] Clinical Communication Start: 06-16-2022 Refill George Stone Aye lljames DO Work Phone: [facility] Clinical Communication Start: 05-02-2021 Refill Erick mcclain DO Work Phone: [facility] Start: 12-19-2020 [facility] Start: 12-18-2020 End: 12-18-2020 Orders Only Erick Meeks DO Work Phone: [facility] Start: 12-16-2020 End: 12-20-2020 ambulatory ERICK MEEKS [facility] Start: 12-16-2020 End: 12-16-2020 ambulatory ERICK MEEKS [facility] Start: 12-16-2020 End: 12-16-2020 Office outpatient visit 10 minutes Erick Meeks DO Work Phone: [facility] Comment on above: Intrauterine contrac eptive device threads lost, initial encounter (Primary Dx); Subacute vaginitis; IUD (intrauterine device) in place Start: 10-15-2020 End: 10-15-2020 Orders Only Erick Meeks DO Work Phone: [facility] Start: 10-14-2020 End: 10-14-2020 ambulatory ERICK MEEKS [facility] Start: 10-14-2020 End: 10-14-2020 Patient encounter status Erick Meeks DO Work Phone: [facility] Start: 10-14-2020 End: 10-14-2020 Periodic preventive med est patient 18-39 yrs Erick Meeks DO Work Phone: [facility] Comment on above: Acute vaginitis (Tabitha natan Dx); Encounter for gynecological examination without abnormal finding Start: 07-19-2020 End: 07-19-2020 Orders Only Erick Meeks Work Phone: [facility] Start: 07-03-2020 End: 07-07-2020 ambulatory ERICK MEEKS [facility] Start: 07-03-2020 End: 07-07-2020 ambulatory ERICK MEEKS [facility] Start: 08-14-2019 End: 08-14-2019 Initial preventive medicine new pt age 18-39yrs Erick Meeks Work Phone: [facility] Comment on above: Acute vaginitis (Tabitha natan Dx); Encounter for gynecological examination without abnormal finding Start: 04-13-2018 End: 04-13-2018 Office outpatient visit 15 minutes Erick Meeks Work Phone: [facility] Comment on above: IUD (intrauterine de vice) in place (Primary Dx); Acute vaginitis Start: 02-17-2018 End: 02-17-2018 Patient encounter Erick Meeks Work Phone: [facility] Comment on above: Encounter for IUD re moval and reinsertion (Primary Dx) Start: 01-17-2018 Patient encounter status Simon Meeks DO Work Phone: [facility] Start: 01-17-2018 End: 01-17-2018 Periodic preventive med est patient 18-39 yrs Erick Meeks Work Phone: [facility] Start: 07-08-2017 Patient encounter Erick Meeks Work Phone: [facility] Start: 09-28-2014 End: 09-29-2014 Patient encounter procedure CARLA BROUSSARD [facility] Procedures Date Procedure Procedure Detail Performing Clinician Start: 11-15-2024 Vitamin D, 25-hydrox y measurement Brian Dominguez NP-Lane Work Phone: Comment on above: Vitamin D StatusDefi ciency: <20 ng/mL (50nmol/L)Insufficiency: 20-30 ng/mL (50-75 nmol/L)Sufficiency: 30-100 ng/mL (75-250 nmol/L)Toxicity: >100 ng/mL (>250 nmol/L) Start: 12-16-2020 Cul bact xcpt urine blood/stool aerobic isol Erick Meeks DO Work Phone: Start: 12-16-2020 Us transvaginal Erick Meeks DO Work Phone: Start: 08-14-2019 Microscopic observat ion [Identifier] in Cervix by Cyto stain Erick Meeks Start: 04-13-2018 End: 04-13-2018 Us pelvic nonobstetric image dcmtn limited/f/u Erick Meeks Work Phone: Start: 03-19-2016 Microscopic observat ion [Identifier] in Cervix by Cyto stain Erick Meeks Plan of Treatment Date Care Activity Detail Author Start: 2047 RSV Immunization age d 60 or older (1 - 1-dose 60+ series) RSV Immunization aged 60 or older (1 - 1-dose 60+ series) [facility] Start: 2037 Zoster Vaccines (1 of 2) Zoste r Vaccines (1 of 2) [facility] Start: 08-13-2024 Screening for malign ant neoplasm of cervix Pap Smear [facility] Start: 01-30-2024 Influenza vaccination [facility] Start: 12-06-2023 End: 12-06-2023 Patient encounter procedure 12/06/2023 9:40 AM EDT Office Visit [facility] Medical [facility] [address] [place] [address] [place] [address] BridVolodymyr schaeffer, APPLIANCE FIXER - [employer] FRIER [address] [address] [place] [address] [facility] Start: 01-29-2023 COVID-19 Vaccine ( season) COVID-19 Vaccine () [facility] Start: 01-29-2023 Influenza vaccination [facility] Start: 08-13-2022 Screening for malign ant neoplasm of cervix [facility] Start: 08-05-2022 End: 08-05-2022 Patient encounter procedure 08/05/2022 Office Visit Family Medicine Matias Harris PA-C [address] [place] [address] [facility] Start: 01-29-2022 Influenza vaccination Influenza Vacc ine (#1) [facility] Start: 10-14-2021 History and physical examination, annual for health maintenance Wellness Visit [facility] Start: 01-29-2021 COVID-19 Vaccine (3 - Booster for Moderna series) COVID-19 Vaccine (3 - Booster for Moderna series) [facility] Start: 01-29-2021 COVID-19 Vaccine (3 - Moderna series) COVID-19 Vaccine (3 - Moderna series) [facility] Start: 01-29-2021 Influenza vaccination [facility] Start: 12-17-2020 End: 12-17-2020 Patient encounter procedure 12/17/2020 Office Visit Obstetrics and Gynecology Erick Meeks DO [address] [address] [phone] [facility] Start: 10-14-2020 End: 10-14-2020 Office Visit 10/14/2020 Office Visit Obstetrics and Gynecology Erick Meeks DO [address] [facility] [address] [place] [address] [phone] [facility] Start: 08-15-2020 End: 08-15-2020 Office Visit 08/15/2020 Office Visit Obstetrics and Gynecology Erick Meeks DO [address] [facility] [address] [place] [address] [phone] [facility] Start: 08-13-2020 History and physical examination, annual for health maintenance Wellness Visit [facility] Start: 01-30-2020 Influenza vaccinatio n given Sequential Influenza Vaccine (#1) [facility] Start: 03-19-2019 Screening for malign ant neoplasm of cervix PAP SMEAR [facility] Work Phone: Start: 01-29-2019 Influenza vaccinatio n given Sequential Influenza Vaccine (#1) [facility] Start: 01-17-2019 History and physical examination, annual for health maintenance Wellness Visit [facility] Start: 02-17-2018 End: 02-17-2018 Ambulatory 02/17/2018 Procedure visit Obstetrics and Gynecology Erick Meeks DO [address] [facility] [address] [place] [address] [phone] [facility] Start: 01-29-2018 Influenza vaccination SEQUENTI AL INFLUENZA VACCINE (#1) [facility] Start: 08-11-2017 Ambulatory 08/11/2017 Off ice Visit Obstetrics and Gynecology Erick Meeks DO [address] [facility] [address] [place] [address] [phone] [facility] Start: 2017 Screening for malign ant neoplasm of cervix [facility] Start: 01-29-2017 Influenza vaccination SEQUENTI AL INFLUENZA VACCINE (#1) [facility] Work Phone: Start: 07-28-2010 Hepatitis B Vaccines (3 of 3 - 19+ 3-dose series) Hepatitis B Vaccines (3 of 3 - 19+ 3-dose series) [facility] Start: 07-28-2010 Hepatitis B Vaccines (3 of 3 - 3-dose series) Hepatitis B Vaccines (3 of 3 - 3-dose series) [facility] Start: 2008 Screening for malign ant neoplasm of cervix Pap Smear [facility] Start: 2005 Hepatitis C antibody , confirmatory test Hepatitis C Screening [facility] Start: 2005 Hepatitis C screening Hepatitis C Sc reening [facility] Start: 2003 COVID-19 Vaccine (1 of 2) COVID-19 Vaccine (1 of 2) [facility] Start: 2002 HIV screening HIV Screening [facility] Start: 2000 Varicella vaccination Varicell a Vaccines (1 of 2 - 13+ 2-dose series) [facility] Start: 11-04-1999 Varicella vaccination Varicell a Vaccines (1 of 2 - 2-dose childhood series) [facility] Start: 1999 Adolescent depressio n screening assessment [facility] Start: 1999 COVID-19 Vaccine (1) COVID-19 Vaccin e (1) [facility] Start: 1999 Depression screening using PHQ-9 (Patient Health Questionnaire 9) score [facility] Start: 1998 DTaP/Tdap/Td Vaccine s (6 - Tdap) DTaP/Tdap/Td Vaccines (6 - Tdap) [facility] Start: 1987 HIV screening HIV Screening [facility] Start: 1987 Tetanus vaccination [facility] End: 04-13-2019 Gardnerella vaginalis rRNA assay Vaginitis DNA Probes Routine Acute vaginitis 1 Occurrences starting 04/13/2018 until 04/13/2019 [facility] Comment on above: 1 Occurrences starti ng 04/13/2018 until 04/13/2019 End: 08-13-2020 Gardnerella vaginalis rRNA assay Vaginitis DNA Probes Microbiology Routine Encounter for gynecological examination without abnormal finding 1 Occurrences starting 08/14/2019 until 08/13/2020 [facility] Comment on above: 1 Occurrences starti ng 08/14/2019 until 08/13/2020 End: 10-14-2021 Gardnerella vaginalis rRNA assay Vaginitis DNA Probes Microbiology Routine Acute vaginitis 1 Occurrences starting 10/14/2020 until 10/14/2021 [facility] Comment on above: 1 Occurrences starti ng 10/14/2020 until 10/14/2021 End: 12-16-2021 Gardnerella vaginalis rRNA assay Vaginitis DNA Probes Microbiology Routine Subacute Vaginitis 1 Occurrences starting 12/16/2020 until 12/16/2021 [facility] Comment on above: 1 Occurrences starti ng 12/16/2020 until 12/16/2021 End: 04-13-2019 Genital microscopy, culture and sensitivities Genital Aerobic Culture Routine Acute vaginitis 1 Occurrences starting 04/13/2018 until 04/13/2019 [facility] Comment on above: 1 Occurrences starti ng 04/13/2018 until 04/13/2019 End: 10-14-2021 Genital microscopy, culture and sensitivities Genital Aerobic Culture Microbiology Routine Acute vaginitis 1 Occurrences starting 10/14/2020 until 10/14/2021 [facility] Comment on above: 1 Occurrences starti ng 10/14/2020 until 10/14/2021 End: 12-16-2021 Genital microscopy, culture and sensitivities Genital Aerobic Culture Microbiology Routine Subacute Vaginitis 1 Occurrences starting 12/16/2020 until 12/16/2021 [facility] Comment on above: 1 Occurrences starti ng 12/16/2020 until 12/16/2021 Genital microscopy, culture and sensitivities Genital Aerobic Culture Microbiology Routine Subacute vaginitis 12/16/2020 12:08 PM EDT [facility] Microscopic examinat ion of vaginal Papanicolaou smear Thinprep Pap Smear Pathology and Cytology Routine Encounter for gynecological examination without abnormal finding Ordered: 08/14/2019 [facility] Comment on above: Ordered: 08/14/2019 End: 04-13-2019 Neisseria gonorrhoeae nucleic acid detection Chlamydia/Gonorrhoeae Amplified RNA Routine Acute vaginitis 1 Occurrences starting 04/13/2018 until 04/13/2019 [facility] Comment on above: 1 Occurrences starti ng 04/13/2018 until 04/13/2019 End: 01-17-2019 Vaginitis DNA Probes Vaginitis DNA Probes Routine Subacute Vaginitis 1 Occurrences starting 01/17/2018 until 01/17/2019 [facility] Vaginitis DNA Probes Vaginitis D NA Probes Routine Subacute vaginitis 01/17/2018 12:42 PM EDT [facility] Immunizations Immunization Date Immunization Notes Care Provider Linda marr 04-22-2022 tuberculin skin test ; purified protein derivative solution, intradermal George Griffithssamaria DO Work Phone: [facility] [employer] 05-07-2017 influenza, injectabl e, quadrivalent, contains preservative George Maza DO Work Phone: [employer] Work Phone: 05-07-2017 influenza virus vacc ine, unspecified formulation George Maza DO Work Phone: [facility] 03-19-2016 influenza, seasonal, injectable George Griffithsyessicajames DO Work Phone: [facility] 06-02-2010 hepatitis A vaccine, adult dosage George Maza DO Work Phone: [facility] [facility] 06-02-2010 hepatitis B vaccine, adult dosage George Maza DO Work Phone: [facility] 10-04-2009 hepatitis B vaccine, adult dosage George Maza DO Work Phone: [facility] 09-24-2009 hepatitis A vaccine, pediatric/adolescent dosage, 2 dose schedule George Maza DO Work Phone: [facility] 09-24-2009 typhoid vaccine, parenteral, other than acetone-killed, dried George Maza DO Work Phone: [facility] 09-24-2009 typhoid capsular polysaccharide vaccine George Maza DO Work Phone: [facility] 09-06-2009 hepatitis B vaccine, pediatric or pediatric/adolescent dosage George Maza DO Work Phone: [facility] 10-07-1999 measles, mumps and rubella virus vaccine George Maza DO Work Phone: [facility] 11-19-1992 diphtheria, tetanus toxoids and acellular pertussis vaccine, unspecified formulation George Maza DO Work Phone: [facility] 11-19-1992 trivalent poliovirus vaccine, live, oral George Maza DO Work Phone: [facility] 01-20-1990 haemophilus influenz ae type b vaccine, PRP-T conjugate George Maza DO Work Phone: [facility] 11-12-1988 diphtheria, tetanus toxoids and pertussis vaccine George Maza DO Work Phone: [facility] 11-12-1988 measles, mumps and rubella virus vaccine George Maza DO Work Phone: [facility] 01-02-1988 diphtheria, tetanus toxoids and pertussis vaccine George Maza DO Work Phone: [facility] 01-02-1988 trivalent poliovirus vaccine, live, oral George Rochea DO Work Phone: [facility] 1985 diphtheria, tetanus toxoids and pertussis vaccine George Maza DO Work Phone: [facility] 1985 trivalent poliovirus vaccine, live, oral George Maza DO Work Phone: [facility] 1985 diphtheria, tetanus toxoids and pertussis vaccine George Maza DO Work Phone: [facility] 1985 trivalent poliovirus vaccine, live, oral George Maza DO Work Phone: [facility] Payers Date Payer Category Payer Self-pay 2022 Medicaid [id number] 2015 Medicaid [id number] 2015 Medicaid [employer] [id number] 2015-Present [id number] 2015 Medicaid [id number] 1987 Unknown [id number] 1987 Unknown [id number] 1987 Unknown [id number] 1987 Unknown [id number] 1987 Unknown [id number] 1987 Unknown [id number] 1987 Unknown [id number] Unknown [id number] Unknown [id number] Unknown [id number] Unknown [id number] Social History Date Type Detail Facility Start: 07-08-2017 End: 05-31-2023 Tobacco smoking status IAIS Never smoker [facility] Work Phone: Start: 1985 Sex Assigned At Not on file [facility] Work Phone: Start: 08-14-2019 End: 12-16-2020 Alcohol intake Current non-drinker of alcohol (finding) [facility] Start: 07-08-2017 End: 07-03-2020 Tobacco use and exposure Never used [facility] Start: 07-26-2022 End: 08-05-2022 Exposure to SARS-CoV-2 (event) Not sure [facility] Exposure to SARS-CoV -2 (event) Unable to assess [facility] Start: 04-22-2022 End: 08-05-2022 Alcohol intake Current drinker of alcohol (finding) [facility] Start: 04-22-2022 End: 08-05-2022 Alcohol intake [facility] Start: 04-22-2022 Alcohol Comment once per month [facility] Start: 08-05-2022 End: 12-06-2023 Tobacco use panel [facility] Start: 09-15-2020 Tobacco Use Tobacco Use [facility] Start: 1985 Sex Assigned At Female [facility] Clinical Notes 10-14-2020 to 01-20-2024 Telephone Encounter - Steff Lamas MA - 01/20/2024 12:50 PM EDTTelephone Encounter - Steff Lamas MA - 01/20/2024 12:50 PM Bre Bolanos MA - 12/06/2023 9:40 AM EDTPatient Instructions Note Date & Type Note Facility 01-20-2024 Telephone encounter Note Recent Visits Date Type Provider Dept 12/06/23 Office Visit SAMMI Matt CNP Showing recent visits within past 365 days and meeting all other requirements Future Appointments No visits were found meeting these conditions. Showing future appointments within next 90 days and meeting all other requirements Requested Prescriptions Pending Prescriptions Disp Refills meclizine (Antivert) 12.5 MG tablet [Pharmacy Med Name: Meclizine HCl Oral Tablet 12.5 MG] 30 tablet 0 Sig: Take 1 tablet (12.5 mg) by mouth 3 times daily as needed for dizziness. Provider: SAMMI Moreland CNP Overdue for visit: Yes If yes - patient scheduled? No Most recent labs completed in chart? N/A Verified pharmacy: yes Verified day(s) supplied: yes Verified refill(s) needed (previous prescription showing no refills in chart): Yes Have you received any controlled medications from any other provider? N/A None [facility] 01-20-2024 Miscellaneous Notes Recent Visits Date Type Provider Dept 12/06/23 Office Visit SAMMI Matt CNP Showing recent visits within past 365 days and meeting all other requirements Future Appointments No visits were found meeting these conditions. Showing future appointments within next 90 days and meeting all other requirements Requested Prescriptions Pending Prescriptions Disp Refills meclizine (Antivert) 12.5 MG tablet [Pharmacy Med Name: Meclizine HCl Oral Tablet 12.5 MG] 30 tablet 0 Sig: Take 1 tablet (12.5 mg) by mouth 3 times daily as needed for dizziness. Provider: SAMMI Moreland CNP Overdue for visit: Yes If yes - patient scheduled? No Most recent labs completed in chart? N/A Verified pharmacy: yes Verified day(s) supplied: yes Verified refill(s) needed (previous prescription showing no refills in chart): Yes Have you received any controlled medications from any other provider? N/A None documented in this encounter [facility] 12-06-2023 Note Please call patient and let her know that I placed a referral to Dr. Zachary Lock for ear nose throat specialist in [place]. [address] [place] [address] telephone [phone] [facility] 12-06-2023 Evaluation + Plan note Associated Problem(s): Vertigo No red flags. Will treat for likely benign paroxysmal positional vertigo. Refer to ENT for further evaluation if not improving with current interventions. [facility] 12-06-2023 Note No red flags. Will t reat for likely benign paroxysmal positional vertigo. Refer to ENT for further evaluation if not improving with current interventions. [facility] 12-06-2023 Miscellaneous Notes Associated Problem(s): Vertigo No red flags. Will treat for likely benign paroxysmal positional vertigo. Refer to ENT for further evaluation if not improving with current interventions. documented in this encounter [facility] 12-06-2023 History of Present illness Narrative Patient verified by last name and date of . Images from the original note were not included. 12/06/2023 Bree Gutierrez (: 1985) is a 38 y.o. female , POD scheduled, Established patient, here for evaluation of the following chief complaint(s): Dizziness and Nausea (Was very sick last April and since then have had nausea and dizzy but they are getting worse ) ASSESSMENT/PLAN: 1. Vertigo Assessment & Plan: No red flags. Will treat for likely benign paroxysmal positional vertigo. Refer to ENT for further evaluation if not improving with current interventions. Orders: - meclizine (Antivert) 12.5 MG tablet; Take 1 tablet (12.5 mg) by mouth 3 times daily as needed for dizziness., Starting 12/06/2023, Until Wed12/05/2024 at 2359, Normal - methylPREDNISolone (Medrol Dospak) 4 MG tablets; Take as directed on package., Normal - External referral to ENT Follow up if symptoms worsen or fail to improve. SUBJECTIVE/OBJECTIVE: HPI - Bree Gutierrez (: 1985) is a 38 y.o. female , Established patient of Dr. Kcs, here for evaluation of the following chief complaint(s): Dizziness and Nausea (Was very sick last April and since then have had nausea and dizzy but they are getting worse ) Presents with significant other Alexx. reports was sick last April with a respiratory illness and has been getting intermittent dizziness and mild nausea. Gets easily triggered by motion and sudden movement. Headaches intermittently more often in the past month, similar to previous headaches. Usually last a few hours to a day. Will take exedrin for her headaches with good relief of symptoms. Denies any current respiratory symptoms, no ear pain or pressure. Patient is legally blind. Reports she can see color and shapes but not clearly. Prior to Admission medications Medication Sig Start Date End Date Taking? Authorizing Provider cetirizine (ZyrTEC) 10 MG tablet Take 1 tablet (10 mg) by mouth every morning. 10/28/23 Yes Matias Harris PA-C fluticasone (Flonase) 50 MCG/ACT nasal spray Administer 2 sprays into each nostril daily. Shake gently. Before first use, prime pump. After use, clean tip and replace cap. 10/28/23 10/27/24 Yes Matias Harris PA-C [id number]-[id number] w/o A (Prenate DHA) 18-0.6-0.4-300 MG capsule Take 1 capsule by mouth daily. 06/19/22 Yes Historical Provider, Diclofenac Sodium (Voltaren) 1 % gel Apply 2 g topically 2 times daily. Patient not taking: Reported on 12/01/2023 08/17/22 Matias Harris PA-C pantoprazole (ProtoNix) 40 MG EC tablet Take 40 mg by mouth every morning (before breakfast). 08/12/21 Historical Provider, Review of Systems Constitutional: Negative for activity change, chills, fatigue and fever. HENT: Negative. Respiratory: Negative. Cardiovascular: Negative. Neurological: Positive for dizziness and headaches. Negative for syncope, weakness and light-headedness. Vitals: 12/06/23 0943 BP: 112/69 Pulse: 78 Temp: 36.6 C (97.9 F) SpO2: 97% Weight: 143 lb 9.6 oz (65.1 kg) Height: 5' 1" (1.549 m) Physical Exam Constitutional: General: She is not in acute distress. Appearance: Normal appearance. She is not ill-appearing. HENT: Head: Normocephalic and atraumatic. Right Ear: Tympanic membrane normal. Left Ear: Tympanic membrane normal. Nose: Nose normal. Mouth/Throat: Mouth: Mucous membranes are moist. Pharynx: Oropharynx is clear. No posterior oropharyngeal erythema. Eyes: Conjunctiva/sclera: Conjunctivae normal. Comments: Blind. Cardiovascular: Rate and Rhythm: Normal rate and regular rhythm. Pulses: Normal pulses. Heart sounds: Normal heart sounds. Pulmonary: Effort: Pulmonary effort is normal. Breath sounds: Normal breath sounds. Neurological: Mental Status: She is alert. An electronic signature was used to authenticate this note. SAMMI Moreland CNP 12/06/2023 12:26 PM documented in this encounter [facility] 12-06-2023 Instructions SAMMI Matt CNP - 12/06/2023 9:40 AM EDT I will send the referral to an Ear Nose Throat specialist. We will call and let you know who the referral was sent to in the next few days. documented in this encounter [facility] 12-06-2023 Note I will send the refe rral to an Ear Nose Throat specialist. We will call and let you know who the referral was sent to in the next few days. [facility] 11-29-2023 Telephone encounter Note Triage message reviewed with clinical staff. Patient appointment confirmed. PCP will assess at appointment visit. [facility] 11-29-2023 Miscellaneous Notes Triage message reviewed with clinical staff. Patient appointment confirmed. PCP will assess at appointment visit. S Patient calling with dizziness B April worse the last month A Patient calling with intermittent dizziness was sick back in April and has been having intermittent dizziness and nausea ever since. Intermittent and some times when laying. Moderated intermittent BAUTISTA's, relieved by Excedrin. Denies vision changes CP SOB. Has not felt as though she would pass out. R Nothing in pcps office. Needs Wednesday or Wednesday appt. POD scheduled with Volodymyr Wednesday morning in [place] office. Location information given. Advised ED for severe symptoms and calling back with ongoing concerns. Thank you Reason for Disposition [1] MODERATE dizziness (e.g., vertigo; feels very unsteady, interferes with normal activities) AND [2] has NOT been evaluated by doctor (or BOX INSPECTOR/PA) for this Protocols used: Dizziness - [id number] documented in this encounter [facility] 11-29-2023 Telephone encounter Note S Patient calling with dizziness B April worse the last month A Patient calling with intermittent dizziness was sick back in April and has been having intermittent dizziness and nausea ever since. Intermittent and some times when laying. Moderated intermittent BAUTISTA's, relieved by Excedrin. Denies vision changes CP SOB. Has not felt as though she would pass out. R Nothing in pcps office. Needs Wednesday or Wednesday appt. POD scheduled with Volodymyr Wednesday in [place] office. Location information given. Advised ED for severe symptoms and calling back with ongoing concerns. Thank you Reason for Disposition [1] MODERATE dizziness (e.g., vertigo; feels very unsteady, interferes with normal activities) AND [2] has NOT been evaluated by doctor (or BOX INSPECTOR/PA) for this Protocols used: Dizziness - [id number] [facility] 10-28-2023 Telephone encounter Note Ordering provider: Dr. Maza Date of last office visit: 08.05.22 Date of next office visit: None Updated/Validated preferred pharmacy: Yes Patient instructed to contact the pharmacy prior to picking up the medication: Yes (1) Medication name: fluticasone (Flonase) 50 MCG/ACT nasal spray Medication dosage: 50 mcg (Micrograms) Monthly quantity needed: 16 g How many day supply requestin days Medication route: nasal (nose) Medication administration time(s): daily If taking medication PRN, reason for taking medication: N/A If this is a controlled substance do you receive this or any other controlled medication from any other doctor or facility: N/A Date of last refill (see medication tab): 02.24.23 (2) Medication name: cetirizine (ZyrTEC) 10 MG tablet Medication dosage: 10 mg (Miligrams Monthly quantity needed: 90 How many day supply requestin days Medication route: oral (PO) Medication administration time(s): daily If taking medication PRN, reason for taking medication: N/A If this is a controlled substance do you receive this or any other controlled medication from any other doctor or facility: No Date of last refill (see medication tab): 12.13.22 [facility] 10-28-2023 Miscellaneous Notes Ordering provider: Dr. Maza Date of last office visit: 08.05.22 Date of next office visit: None Updated/Validated preferred pharmacy: Yes Patient instructed to contact the pharmacy prior to picking up the medication: Yes (1) Medication name: fluticasone (Flonase) 50 MCG/ACT nasal spray Medication dosage: 50 mcg (Micrograms) Monthly quantity needed: 16 g How many day supply requestin days Medication route: nasal (nose) Medication administration time(s): daily If taking medication PRN, reason for taking medication: N/A If this is a controlled substance do you receive this or any other controlled medication from any other doctor or facility: N/A Date of last refill (see medication tab): 02.24.23 (2) Medication name: cetirizine (ZyrTEC) 10 MG tablet Medication dosage: 10 mg (Miligrams Monthly quantity needed: 90 How many day supply requestin days Medication route: oral (PO) Medication administration time(s): daily If taking medication PRN, reason for taking medication: N/A If this is a controlled substance do you receive this or any other controlled medication from any other doctor or facility: No Date of last refill (see medication tab): 12.13.22 documented in this encounter [facility] 06-13-2023 Note HNO ID: [id number] Author: GINA STRICKLAND PA-C Service: ? Author Type: Physician Manager Human Resources Type: Progress Notes Filed: 06/13/2023 15:28 Note Text: This note was created using [employer]. Subjective Bree Gutierrez is a 38 year old female. HPI Patient presents with a chief complaint of right ear pain. She has had problems with earwax before and was putting some drops in her ears but did not seem to be helping. States it started to get painful a few days ago so came in for evaluation. She not had any drainage of the ear. She did have a cold about 2 weeks ago but that is resolved. No fever. Some muffled hearing. Review of Systems Constitutional: Negative for fever. HENT: Positive for ear pain and hearing loss. Negative for congestion, ear discharge, rhinorrhea, sinus pressure, sinus pain and sore throat. Respiratory: Negative for cough. Cardiovascular: Negative. Gastrointestinal: Negative. Genitourinary: Negative. Musculoskeletal: Negative. All other systems reviewed and are negative. PAST MEDICAL HISTORY Diagnosis Date PMH - PAST MEDICAL HISTORY OF lebers congential ammourious PMH - PAST MEDICAL HISTORY OF skin disorder PMH - PAST MEDICAL HISTORY OF legally blind Current Outpatient Medications Medication Sig Dispense Refill cetirizine (ZYRTEC) 10 mg tablet Take 10 mg by mouth once daily. VICODIN ES 7.5 MG-750 MG TAB take one tablet q 4-6 hours prn pain (Patient not taking: Reported on 06/13/2023) 35 0 PERCOCET 5 MG-325 MG TAB take one tablet po q 4-6 hours prn pain (Patient not taking: Reported on 06/13/2023) 35 0 COMPAZINE 5 MG TAB take one tablet po q 6 hours prn nausea (Patient not taking: Reported on 06/13/2023) 20 1 FELDENE 20 MG CAP take one tablet daily (Patient not taking: Reported on 06/13/2023) 10 0 No current facility-administered medications for this visit. No past surgical history on file. FAMILY HISTORY Problem Relation Age of Onset Colon Cancer Maternal Grandmother colon Diabetes Maternal Grandmother Stroke Paternal Grandfather Hypertension Father Lipids Father Social History Tobacco Use Smoking status: Never Substance Use Topics Alcohol use: No Objective BP 110/68 Pulse 88 Temp 36.5 ?C (97.7 ?F) Resp 16 Wt 66.2 kg (146 lb) LMP 10/12/2005 SpO2 100% Physical Exam Vitals reviewed. Constitutional: Appearance: Normal appearance. HENT: Head: Normocephalic and atraumatic. Right Ear: There is impacted cerumen. Left Ear: There is impacted cerumen. Ears: Comments: Bilateral cerumen impaction. After flushed by nursing staff right external auditory canal swollen and erythematous. TM intact. Normal middle ear. Left ear unremarkable after flushing. TM intact. Nose: Nose normal. Skin: General: Skin is warm and dry. Neurological: Mental Status: She is alert. Assessment and Plan ASSESSMENT/PLAN: 1. Bilateral impacted cerumen - ICD9: 380.4, ICD10: H61.23 (primary diagnosis) Flushed here by nursing staff and cleared. - AMBULATORY EAR LAVAGE/IRRIGATION 2. Acute otitis externa of right ear, unspecified type - ICD9: 380.10, ICD10: H60.501 Will treat with Cortisporin. Follow-up if not improving. Gina Strickland PA-C [facility] 02-24-2023 Telephone encounter Note Pt advised that nose spray was sent. [facility] 02-24-2023 Miscellaneous Notes Pt advised that nose spray was sent. Spoke to patient and she would like to take the nasal spray and would like it sent to [facility] in [place]. Patient was left a detailed message and to return call to the office to let us know if she wants to try a nasal spray. Please assist S: Patient spoke with [facility] nurse regarding medication question regarding Zyrtec B: No new or worsening symptoms at this time. A: The patient states that she typically has seasonal allergies in the fall and she would like to know if she can take more than 1 Zyrtec per day. R: According to the dosage table the adult dose is 10mg per day. Offered to conference her through to speak with her pharmacist. She declined stating she will call him later. No further needs at this time. Patient instructed to call back with new or worsening symptoms. Reason for Disposition Information only question and nurse able to answer Protocols used: Information Only Call - No [id number] documented in this encounter [facility] 02-24-2023 Telephone encounter Note Spoke to patient and she would like to take the nasal spray and would like it sent to [facility] in [place]. [facility] 02-22-2023 Telephone encounter Note Patient was left a detailed message and to return call to the office to let us know if she wants to try a nasal spray. [facility] 02-22-2023 Miscellaneous Notes Patient was left a detailed message and to return call to the office to let us know if she wants to try a nasal spray. Please assist S: Patient spoke with [facility] nurse regarding medication question regarding Zyrtec B: No new or worsening symptoms at this time. A: The patient states that she typically has seasonal allergies in the fall and she would like to know if she can take more than 1 Zyrtec per day. R: According to the dosage table the adult dose is 10mg per day. Offered to conference her through to speak with her pharmacist. She declined stating she will call him later. No further needs at this time. Patient instructed to call back with new or worsening symptoms. Reason for Disposition Information only question and nurse able to answer Protocols used: Information Only Call - No [id number] documented in this encounter [facility] 02-22-2023 Telephone encounter Note Please assist [facility] 02-22-2023 Telephone encounter Note S: Patient spoke with [facility] nurse regarding medication question regarding Zyrtec B: No new or worsening symptoms at this time. A: The patient states that she typically has seasonal allergies in the fall and she would like to know if she can take more than 1 Zyrtec per day. R: According to the dosage table the adult dose is 10mg per day. Offered to conference her through to speak with her pharmacist. She declined stating she will call him later. No further needs at this time. Patient instructed to call back with new or worsening symptoms. Reason for Disposition Information only question and nurse able to answer Protocols used: Information Only Call - No [id number] [facility] 08-05-2022 History of Present illness Narrative Images from the original note were not included. [facility] [address] [facility] [address] Dept: [phone] Dept Loc: [phone] Visit type: Established Patient Reason for Visit: Shoulder Pain (rt) and Neck Pain Assessment and Plan 1. Right shoulder tendonitis Comments: acute inflammation right shoulder will rx medrol dose anders, consider Xray if symptoms persist Orders: - methylPREDNISolone (Medrol Dospak) 4 MG tablets; Take as directed on package., Normal 2. 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 Pain is more consistent over the proximal anterior aspect of the right shoulder suspect bicipital tendinitis potentially a short head. There is no restriction of range of motion both actively and passively of the right shoulder suspect a labral tear. There is no signs of rotator cuff disruption. Cerna test did produce a little bit of discomfort however she was able to perform complete internal and external rotation with very minimal discomfort she was also able to do AB and adduction with no real difficulty with resistance. There is no signs of crepitus step-off or deformity. There is no signs of a septic joint its not red is not hot its not swollen. There is a mild rash over the shoulder and into the trapezius of unclear etiology it does not appear to zoster nature as the rash is present on the left side of the neck as well encouraged cool compresses for now and trial therapy with Medrol Dosepak. She also inquired about the use of coenzyme Q 10. It is an herbal supplement. It is indicated for several conditions. One of the be a mitochondrial disease and disorder. Since she does have the underlying relievers condition that is a mitochondrial disease as well we discussed this she would like to try using of this to just help as she is felt that she is read some literature about it and thought that she would benefit from the usage of it. We discussed this she would like to try it we will closely monitor her liver enzymes as it could cause a slight elevation she is understanding of this. 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 She does do a lot of computer work uses a walking stick as she is visually impaired she did states she was doing well some [employer] reading about a week ago on Wednesday and Wednesday she woke and noticed that she was having some generalized discomfort in the right shoulder. She states some days are better than others some days she does not notice that she gets up in the morning its not bad but she states over the course of the day sitting at the computer and doing some work where she reaches for with flexion of the right shoulder it seems to aggravate and causes some pain by the end of the day. She denies any history of injury or trauma she no falls. No recent fever or chills. She is tried some Tylenol with minimal resolution of her symptoms. Denies any fever, rash, redness or swelling. Denies any other concerns. Review of Systems Constitutional: Negative for chills, fatigue and fever. Respiratory: Negative for cough and shortness of breath. Cardiovascular: Negative for chest pain. Musculoskeletal: Describes pain to the right shoulder as described in the HPI no history of injury trauma or falls. Allergies Allergen Reactions Lidocaine Outpatient Medications Prior to Visit Medication Sig Dispense Refill cetirizine (ZyrTEC) 10 MG tablet TAKE 1 TABLET BY MOUTH EVERY DAY IN THE MORNING 30 tablet 5 Oaacgc-FjVkd-[id number]-FA-DHA w/o A (Prenate DHA) 18-0.6-0.4-300 MG capsule Take 1 capsule by mouth daily. pantoprazole (ProtoNix) 40 MG EC tablet Take 40 mg by mouth every morning (before breakfast). No facility-administered medications prior to visit. 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 Pap smear in [facility] Social History Tobacco Use Smoking status: Never Smokeless tobacco: Never Substance Use Topics Alcohol use: Yes Alcohol/week: 1.0 standard drink Types: 1 Standard drinks or equivalent per week Comment: once per month Past Surgical History: Procedure Laterality Date BUNIONECTOMY Left 2006 REMOVAL IUD (HISTORICAL) 2021 WISDOM TOOTH EXTRACTION 2004 Family History Problem Relation Name Age of Onset Cancer Mother Anna bladder and leukemia No Known Problems Father Georgi migraines and edmund No Known Problems Sister Fany No Known Problems Brother Donte Colon cancer Maternal Grandmother Objective BP 135/87 (BP Location: Left arm, Patient Position: Sitting, BP Cuff Size: Large adult) Pulse 93 Temp 36.9 C (98.4 F) (Temporal) Ht 5' 1" (1.549 m) Wt 140 lb 12.8 oz (63.9 kg) SpO2 100% BMI 26.60 kg/m Physical Exam Vitals reviewed. Constitutional: General: She is not in acute distress. Appearance: Normal appearance. She is normal weight. She is not toxic-appearing. Eyes: Comments: Obvious appearance of horizontal nystagmus Cardiovascular: Rate and Rhythm: Normal rate and regular rhythm. Musculoskeletal: General: Tenderness present. No swelling, deformity or signs of injury. Normal range of motion. Comments: Examination of the right shoulder is otherwise unremarkable its not red hot or swollen. There is no signs of crepitus click step-off or deformity. She able to perform internal and external rotation without any difficulty. Drop arm test is negative Cerna test equivocal. Tinel sign is negative both at the elbow and the wrist. Intrinsic hand muscle appear intact she is able to oppose all 5 digits without difficulty strength is 5 out of 5 through full range of motion. Skin: General: Skin is warm and dry. Comments: There is a small area of diffuse macular erythematous rash around the base of her neck that extends over the right shoulder and into the right trapezial area but also similar and present on the left side of her neck and a similar presentation to nonpruritic in nature of unclear etiology Neurological: Mental Status: She is alert. Data Reviewed and Summarized Labs: Imaging/Testing: Matias Harris PA-C 08/05/2022 Please note that portions of this note may have been completed with voice recognition software. Documentation reviewed prior to signing but minor errors in continuous process coffee roaster may have occurred. documented in this encounter [facility] 08-03-2022 Telephone encounter Note Triage message reviewed with clinical staff. Patient appointment confirmed. Matias will assess at appointment visit. [facility] 08-03-2022 Miscellaneous Notes Triage message reviewed with clinical staff. Patient appointment confirmed. Matias will assess at appointment visit. S: Patient spoke with [facility] nurse regarding shoulder pain B: Onset of symptoms/concern started a week ago A: Patient is having right shoulder pain that has yessy going on for about a week now. Pain radiates into her head and neck and feels numb in the shoulder and neck area on that side. Rates pain as fluctuating between mild to severe. If sits still for awhile ok but if moves it really hurts and when turning head. Patient has been trying ice, heat as well as Advil and nothing has seemed to help. Denies any fever, rash, redness or swelling. Negative COVID screen. R: Declined appointment for today stating she needs a couple days to scheduled for a ride. Appointment scheduled for Wednesday at 8:40am. Insurance verified. Patient understands care advice. No further needs at this time. Patient instructed to call back with new or worsening symptoms. Reason for Disposition Pain is worsened or caused by bending the neck Protocols used: Shoulder [id number] documented in this encounter [facility] 08-03-2022 Miscellaneous Notes Error documented in this encounter [facility] 08-03-2022 Telephone encounter Note Error [facility] 08-03-2022 Telephone encounter Note S: Patient spoke with [facility] nurse regarding shoulder pain B: Onset of symptoms/concern started a week ago A: Patient is having right shoulder pain that has yessy going on for about a week now. Pain radiates into her head and neck and feels numb in the shoulder and neck area on that side. Rates pain as fluctuating between mild to severe. If sits still for awhile ok but if moves it really hurts and when turning head. Patient has been trying ice, heat as well as Advil and nothing has seemed to help. Denies any fever, rash, redness or swelling. Negative COVID screen. R: Declined appointment for today stating she needs a couple days to scheduled for a ride. Appointment scheduled for Wednesday at 8:40am. Insurance verified. Patient understands care advice. No further needs at this time. Patient instructed to call back with new or worsening symptoms. Reason for Disposition Pain is worsened or caused by bending the neck Protocols used: Shoulder [id number] [facility] 12-18-2020 Miscellaneous Notes Addended by: ERICK MEEKS on: 12/18/2020 03:58 PM Modules accepted: Orders Addended by: ERICK MEEKS on: 12/18/2020 03:52 PM Modules accepted: Orders documented in this encounter [facility] 12-18-2020 Miscellaneous Notes Addended by: REICK MEEKS on: 12/18/2020 03:52 PM Modules accepted: Orders documented in this encounter [facility] 12-16-2020 History of Present illness Narrative IUD Removal Procedure Note: Type of IUD: Mirena Reason for removal: Side effect: Abnormal uterine bleeding No LMP recorded. (Menstrual status: IUD). Procedure Time Out Documentation Procedure Details IUD strings visible: no Removal: The endocervical canal was gently probed in an attempt to locate the IUD strings. Also a Cytobrush was utilized. Placental style forceps were utilized to enter the endocervical canal in order to graft the IUD strings. All attempts were unsuccessful. Ultrasound exam was performed which did demonstrate an intrauterine IUD that was above a uterine fibroid. We did discuss options and the patient elects to proceed with hysteroscopy, IUD removal. The procedure was discussed in detail including the risk, potential side effects, potential complications and alternative forms of treatment. All questions answered to her satisfaction. Consent form reviewed and signed. Erick Meeks DO [employer] DIRECTOR OF SALES AND MARKETING FOCUS NOTE Subjective: CC: Established DIRECTOR OF SALES AND MARKETING HPI: Patient is a 35 y.o. year old who presents for discussion regarding continued abnormal uterine bleeding with Mirena IUD. Patient is also taking continuous oral contraceptives for cycle control. She complained of recurrent bacterial vaginosis, yeast vaginitis, . Patient requests IUD removal. Review of Systems ROS: 14 point ROS otherwise neg except as above in the HPI History: Past Medical History: Diagnosis Date Blind in both eyes Seasonal allergies Prior to Admission medications Medication Sig Start Date End Date Taking? Authorizing Provider levonorgestreL (MIRENA) 20 mcg/24 hours (5 yrs) 52 mg IUD 1 each by Intrauterine route once . Yes Historical Provider, norethindrone-ethinyl estradiol (Alyacen , ,) 1-35 mg-mcg per tablet Take 1 (one) tablet by mouth daily . 10/14/20 Yes Erick Meeks DO amoxicillin (AMOXIL) 500 MG capsule Take 1 (one) capsule (500 mg total) by mouth 2 (two) times a day . Patient not taking: Reported on 12/16/2020 . 10/15/20 Erick Meeks DO metroNIDAZOLE (METROGEL) 0.75 % vaginal gel insert 1 APPLICATION vaginally two times a week for 6 WEEKS Patient not taking: Reported on 12/16/2020 12/12/20 Erick Meeks DO Past Surgical History: Procedure Laterality Date FOOT SURGERY Family History Problem Relation Age of Onset Bladder Cancer Mother Leukemia Mother Hypertension Father Social History Substance and Sexual Activity Alcohol Use No Social History Substance and Sexual Activity Drug Use No Social History Tobacco Use Smoking Status Never Smoker Smokeless Tobacco Never Used OB History 0 Para 0 Term 0 0 AB 0 Living 0 SAB 0 TAB 0 Ectopic 0 Multiple 0 Live Births 0 Allergies: Patient has no known allergies. Objective: Physical Exam BP 119/79 Pulse 80 Ht 5' 1" Wt 67.6 kg (149 lb) BMI 28.15 kg/m GENERAL: alert, appears stated age, NAD PSYCH: Normal affect, non-anxious RESP: easy respirations, no visible dyspnea CV: no edema or varicosities PELVIC: External genitalia without lesions, ulcers, or discharge. Normal urethra without discharge or tenderness to palpation. No cystocele or bladder tenderness to palpation. Vaginal exam with normal rugae; BV noted on wet prep. Cervix normal in appearance without lesions or discharge, no CMT. IUD string not visible. Uterus non-tender, normal size and anteverted, mobile. Adnexa mobile without masses or tenderness to palpation RECTAL: No hemorrhoids or bleeding from anus Labs/Imaging: Last Pap Smear: No results found for: PAPSMEAR Assessment/Plan: 35 y.o. Ultrasound exam reviewed which demonstrated IUD intrauterine. Not able to remove IUD in office. We did discuss options and plans to proceed with hysteroscopy, IUD removal. Bacterial vaginosis was noted at the time of examination. Cultures obtained. Rx Cleocin. Problem List Items Addressed This Visit None Visit Diagnoses IUD (intrauterine device) in place - Primary Relevant Orders US Transvaginal Orders Placed This Encounter Procedures US Transvaginal This back office order was created through the Ultrasound Visit Navigator section. Order Specific Question: Release to patient Answer: Immediate documented in this encounter [facility] 12-16-2020 History of Present illness Narrative IUD Removal Procedure Note: Type of IUD: Mirena Reason for removal: Side effect: Abnormal uterine bleeding No LMP recorded. (Menstrual status: IUD). Procedure Time Out Documentation Procedure Details IUD strings visible: no Removal: The endocervical canal was gently probed in an attempt to locate the IUD strings. Also a Cytobrush was utilized. Placental style forceps were utilized to enter the endocervical canal in order to graft the IUD strings. All attempts were unsuccessful. Ultrasound exam was performed which did demonstrate an intrauterine IUD that was above a uterine fibroid. We did discuss options and the patient elects to proceed with hysteroscopy, IUD removal. The procedure was discussed in detail including the risk, potential side effects, potential complications and alternative forms of treatment. All questions answered to her satisfaction. Consent form reviewed and signed. Erick Meeks DO [employer] DIRECTOR OF SALES AND MARKETING FOCUS NOTE Subjective: CC: Established DIRECTOR OF SALES AND MARKETING HPI: Patient is a 35 y.o. year old who presents for discussion regarding continued abnormal uterine bleeding with Mirena IUD. Patient is also taking continuous oral contraceptives for cycle control. She complained of recurrent bacterial vaginosis, yeast vaginitis, . Patient requests IUD removal. Review of Systems ROS: 14 point ROS otherwise neg except as above in the HPI History: Past Medical History: Diagnosis Date Blind in both eyes Seasonal allergies Prior to Admission medications Medication Sig Start Date End Date Taking? Authorizing Provider levonorgestreL (MIRENA) 20 mcg/24 hours (5 yrs) 52 mg IUD 1 each by Intrauterine route once . Yes Historical Provider, norethindrone-ethinyl estradiol (Alyacen , ,) 1-35 mg-mcg per tablet Take 1 (one) tablet by mouth daily . 10/14/20 Yes Erick Meeks DO amoxicillin (AMOXIL) 500 MG capsule Take 1 (one) capsule (500 mg total) by mouth 2 (two) times a day . Patient not taking: Reported on 12/16/2020 . 10/15/20 Erick Meeks DO metroNIDAZOLE (METROGEL) 0.75 % vaginal gel insert 1 APPLICATION vaginally two times a week for 6 WEEKS Patient not taking: Reported on 12/16/2020 12/12/20 Erick Meeks DO Past Surgical History: Procedure Laterality Date FOOT SURGERY Family History Problem Relation Age of Onset Bladder Cancer Mother Leukemia Mother Hypertension Father Social History Substance and Sexual Activity Alcohol Use No Social History Substance and Sexual Activity Drug Use No Social History Tobacco Use Smoking Status Never Smoker Smokeless Tobacco Never Used OB History 0 Para 0 Term 0 0 AB 0 Living 0 SAB 0 TAB 0 Ectopic 0 Multiple 0 Live Births 0 Allergies: Patient has no known allergies. Objective: Physical Exam BP 119/79 Pulse 80 Ht 5' 1" Wt 67.6 kg (149 lb) BMI 28.15 kg/m GENERAL: alert, appears stated age, NAD PSYCH: Normal affect, non-anxious RESP: easy respirations, no visible dyspnea CV: no edema or varicosities PELVIC: External genitalia without lesions, ulcers, or discharge. Normal urethra without discharge or tenderness to palpation. No cystocele or bladder tenderness to palpation. Vaginal exam with normal rugae; BV noted on wet prep. Cervix normal in appearance without lesions or discharge, no CMT. IUD string not visible. Uterus non-tender, normal size and anteverted, mobile. Adnexa mobile without masses or tenderness to palpation RECTAL: No hemorrhoids or bleeding from anus Labs/Imaging: Last Pap Smear: No results found for: PAPSMEAR Assessment/Plan: 35 y.o. Ultrasound exam reviewed which demonstrated IUD intrauterine. Not able to remove IUD in office. We did discuss options and plans to proceed with hysteroscopy, IUD removal. Bacterial vaginosis was noted at the time of examination. Cultures obtained. Rx Cleocin. Patient requests paper Rx to take to [facility]. Problem List Items Addressed This Visit None Visit Diagnoses IUD (intrauterine device) in place - Primary Relevant Orders US Transvaginal Orders Placed This Encounter Procedures US Transvaginal This back office order was created through the Ultrasound Visit Navigator section. 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 female who presents today for annual examination. Today the patient has no complaints. She is in a safe relationship. plans: none She does exercise. Her diet is healthy. She does taking a multi-vitamin. She does have a PCP No LMP recorded. (Menstrual status: IUD). Contraception: IUD. Patient uses Mirena IUD plus continuous oral contraceptives to help control breakthrough bleeding Last mammogram: never. Her last colonoscopy was never. Her last DEXA scan was never. Last Pap: 2019. Results were: normal History: Past Medical History: Diagnosis Date Blind in both eyes Seasonal allergies Past Surgical History: Procedure Laterality Date FOOT SURGERY Family History Problem Relation Age of Onset Bladder Cancer Mother Leukemia Mother Hypertension Father Social History Substance and Sexual Activity Alcohol Use No Social History Substance and Sexual Activity Drug Use No Social History Tobacco Use Smoking Status Never Smoker Smokeless Tobacco Never Used OB History 0 Para 0 Term 0 0 AB 0 Living 0 SAB 0 TAB 0 Ectopic 0 Multiple 0 Live Births 0 Allergies: Patient has no known allergies. Review of Systems ROS: 14 point ROS otherwise neg except as mentioned above in the HPI Objective: Physical Exam BP 116/75 Pulse 83 Ht 5' 1" Wt 66.9 kg (147 lb 6.4 oz) BMI 27.85 kg/m GENERAL: alert, appears stated age, NAD PSYCH: Normal affect, non-anxious RESP: easy respirations, no visible dyspnea CV: no edema or varicosities BREAST: no masses or tenderness to palptation, no skin changes or dimpling LYMPH: No axillary or inguinal lymphadenopathy ABDOMEN: soft, non-tender, non-distended PELVIC: External genitalia without lesions, ulcers, or discharge. Normal urethra without discharge or tenderness to palpation. No cystocele or bladder tenderness to palpation. Vaginal exam with normal rugae; no discharge, lesions or bleeding. Cervix normal in appearance without lesions or discharge, no CMT. Uterus non-tender, normal size and anteverted, mobile. Adnexa mobile without masses or tenderness to palpation RECTAL: No hemorrhoids or bleeding from anus Assessment/Plan: Pt is a 35 y.o. who is being evaluated for an annual exam. I did perform an exam today including a pelvic exam, breast exam. Vaginal cultures were obtained to rule out BV. Patient would like to schedule to have the Mirena IUD removed and then she will use oral contraceptives. Problem List Items Addressed This Visit None Visit Diagnoses Acute vaginitis - Primary Relevant Orders Genital Aerobic Culture Vaginitis DNA Probes All questions answered. Breast self exam technique reviewed and patient encouraged to perform self-exam monthly. Healthy diet and regular aerobic exercise discussed. Daily MVI use recommended. Orders Placed This Encounter Procedures Genital Aerobic Culture Standing Status: Future Standing Expiration Date: 10/14/2021 Order Specific Question: Release to patient Answer: Immediate Vaginitis DNA Probes Standing Status: Future Standing Expiration Date: 10/14/2021 Order Specific Question: Release to patient Answer: Immediate documented in this encounter [facility] Evaluation note Diagnosis Acute vaginitis- Primary Unspecified vaginitis and vulvovaginitis Encounter for gynecological examination without abnormal finding [facility] Intrauterine contraceptive device threads lost, initial encounter- Primary Subacute vaginitis IUD (intrauterine device) in place Presence of intrauterine contraceptive device [facility] Intrauterine contraceptive device threads lost, initial encounter- Primary Subacute vaginitis IUD (intrauterine device) in place Presence of intrauterine contraceptive device [facility] Diagnosis Vertigo- Primary Dizziness and giddiness [facility] Diagnosis Vertigo Dizziness and giddiness [facility]* Diagnosis Right shoulder tendonitis- Primary Rash Rash and other nonspecific skin eruption 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 [facility] Work Phone: Reason for referral (narrative)* Consultation (Routine) - Pending Review Specialty Diagnoses / Procedures Referred By Daniel foster Referred To Contact Otolaryngology Diagnoses Vertigo Procedures [place] OFFICE/OUTPATIENT [facility] 60 MINUTES Volodymyr Velazquez APRN - [employer] [address] [place] [address] Zachary Cosme [address] [place] [address] Referral ID Status Reason Start Date Expiration Date Visits Requested Visits Authorized [id number] Pending Review Specialty Services Required 12/06/2023 12/05/[address] [facility] for referral (narrative)No reason for referral information availableWMiami Valley Hospital Work Phone: Assessments Diagnosis Encounter for insertion of c opper IUD - Primary IUD (intrauterine device) in place Presence of intrauterine contraceptive device Diagnosis Encounter for gynecological examination with abnormal finding - Primary Dysmenorrhea Abnormal uterine bleeding (A UB) Subacute vaginitis Diagnosis Encounter for IUD removal an d reinsertion - Primary Diagnosis IUD (intrauterine device) in place - Primary Presence of intrauterine contraceptive device Acute vaginitis Unspecified vaginitis and vulvovaginitis Diagnosis Acute vaginitis Unspecified vaginitis and vulvovaginitis Encounter for gynecological examination without abnormal finding History of Present Illness * Erick Meeks DO - 04/13/2018 11:27 AM EST Formatting of this note may be different from the original. DIRECTOR OF SALES AND MARKETING FOCUS NOTE Subjective: CC: Established DIRECTOR OF SALES AND MARKETING HPI: Patient is a 33 y.o. year old who presents for ultrasound exam to confirm IUD placement. Mirena IUD with good placement and fundal area of uterus. Patient also complaining of vaginal discharge with fishy odor times 3 days. Cultures obtained. Wet prep demonstrates bacterial vaginosis. Rx Cleocin.. Review of Systems ROS: 14 point ROS otherwise neg except as above in the HPI History: Past Medical History: Diagnosis Date Blind in both eyes Seasonal allergies Prior to Admission medications Medication Sig Start Date End Date Taking? Authorizing Provider clindamycin (CLEOCIN) 300 MG capsule Take 1 (one) capsule (300 mg total) by mouth 2 (two) times a day. 02/21/18 Erick Meeks DO clindamycin (CLEOCIN) 300 MG capsule Take 1 (one) capsule (300 mg total) by mouth 2 (two) times a day . 04/13/18 Erick Meeks DO ibuprofen (ADVIL,MOTRIN) 800 MG tablet Take 1 (one) tablet (800 mg total) by mouth every 8 (eight) hours as needed for pain. 08/11/17 08/11/18 Erick Meeks DO Past Surgical History: Procedure Laterality Date FOOT SURGERY History reviewed. No pertinent family history. History Alcohol Use No History Drug Use No History Smoking Status Never Smoker Smokeless Tobacco Never Used OB History Para Term AB Living 0 0 0 0 0 0 SAB TAB Ectopic Multiple Live Births 0 0 0 0 0 Allergies: Patient has no known allergies. Objective: Physical Exam BP 114/73 Pulse 76 Ht 5' 1" Wt 59.7 kg (131 lb 9.6 oz) BMI 24.87 kg/m GENERAL: alert, appears stated age, NAD PSYCH: Normal affect, non-anxious RESP: easy respirations, no visible dyspnea CV: no edema or varicosities PELVIC: External genitalia without lesions, ulcers, or discharge. Normal urethra without discharge or tenderness to palpation. No cystocele or bladder tenderness to palpation. Vaginal exam with normal rugae. Wet prep demonstrates bacterial vaginosis. Cervix normal in appearance without lesions or discharge, no CMT. Uterus non-tender, normal size and anteverted, mobile. Adnexa mobile without masses or tenderness to palpation RECTAL: No hemorrhoids or bleeding from anus Labs/Imaging: Last Pap Smear: No results found for: PAPSMEAR Assessment/Plan: 33 y.o. Mirena IUD placement confirmed via ultrasound. Bacterial vaginosis. Cultures obtained. Rx Cleocin. Follow-up December 2018 for annual exam. Problem List Items Addressed This Visit None Visit Diagnoses IUD (intrauterine device) in place - Primary Relevant Orders US Pelvis Limited (Completed) Acute vaginitis Relevant Orders Genital Aerobic Culture Vaginitis DNA Probes Chlamydia/Gonorrhoeae Amplified RNA Orders Placed This Encounter Procedures Genital Aerobic Culture Standing Status: Future Standing Expiration Date: 04/13/2019 Vaginitis DNA Probes Standing Status: Future Standing Expiration Date: 04/13/2019 Chlamydia/Gonorrhoeae Amplified RNA Standing Status: Future Standing Expiration Date: 04/13/2019 US Pelvis Limited This back office order was created through the Ultrasound Visit Navigator section. 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 female who presents today for annual examination. Today the patient has no complaints. She is currently sexually active with one partner(s). She is in a safe relationship. plans: none She does exercise. Her diet is healthy. She does taking a multi-vitamin. She does have a PCP No LMP recorded. (Menstrual status: IUD). Contraception: IUD Last mammogram: never. Results were: normal. Her last colonoscopy was never. Her last DEXA scan was never. Last Pap: 2015. Results were: normal History: Past Medical History: Diagnosis Date Blind in both eyes Seasonal allergies Past Surgical History: Procedure Laterality Date FOOT SURGERY History reviewed. No pertinent family history. Social History Substance and Sexual Activity Alcohol Use No Social History Substance and Sexual Activity Drug Use No Social History Tobacco Use Smoking Status Never Smoker Smokeless Tobacco Never Used OB History 0 Para 0 Term 0 0 AB 0 Living 0 SAB 0 TAB 0 Ectopic 0 Multiple 0 Live Births 0 Allergies: Patient has no known allergies. Review of Systems ROS: 14 point ROS otherwise neg except as mentioned above in the HPI Objective: Physical Exam BP 109/75 Pulse 87 Ht 5' 1" Wt 62.1 kg (137 lb) BMI 25.89 kg/m GENERAL: alert, appears stated age, NAD PSYCH: Normal affect, non-anxious RESP: easy respirations, no visible dyspnea CV: no edema or varicosities BREAST: no masses or tenderness to palptation, no skin changes or dimpling LYMPH: No axillary or inguinal lymphadenopathy ABDOMEN: soft, non-tender, non-distended PELVIC: External genitalia without lesions, ulcers, or discharge. Normal urethra without discharge or tenderness to palpation. No cystocele or bladder tenderness to palpation. Vaginal exam with normal rugae; Wet prep demonstrates BV Cervix normal in appearance without lesions or discharge, no CMT. Uterus non-tender, normal size and anteverted, mobile. Adnexa mobile without masses or tenderness to palpation RECTAL: No hemorrhoids or bleeding from anus Assessment/Plan: Pt is a 34 y.o. who is being evaluated for an annual exam. I did perform an exam today including a Pap smear, pelvic exam, breast exam, vaginal cultures. Wet prep demonstrates bacterial vaginosis. Refill Cleocin. 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 Problem List Items Addressed This Visit None Visit Diagnoses Acute vaginitis - Primary Encounter for gynecological examination without abnormal finding Relevant Orders Vaginitis DNA Probes Thinprep Pap Smear All questions answered. Await pap smear results. Breast self exam technique reviewed and patient encouraged to perform self-exam monthly. Thin prep Pap smear. Wet prep. Healthy diet and regular aerobic exercise discussed. Daily MVI use recommended. Orders Placed This Encounter Procedures Vaginitis DNA Probes Standing Status: Future Standing Expiration Date: 08/13/2020 Thinprep Pap Smear Order Specific Question: Reflex HPV? Answer: Regardless of PAP Result [2] Order Specific Question: Menopausal Answer: No [0] Order Specific Question: Hysterectomy Answer: No [0] Order Specific Question: Partial Hysterectomy Answer: No [0] Order Specific Question: Previous BX/COLPO/LEEP Answer: No [0] Order Specific Question: Control Answer: No [0] Order Specific Question: IUD Answer: Yes [1] Order Specific Question: Previous Abnormal Pap Answer: No [0] Order Specific Question: Answer: No [0] Order Specific Question: Answer: No [0] Order Specific Question: Abnormal Bleeding Answer: No [0] Order Specific Question: Hormone Therapy Answer: No [0] Order Specific Question: Radiation Answer: No [0] Order Specific Question: Answer: No [0] documented in this encounter Advance Directives No Advanced Directives Records FoundDocuments on File Type Date 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 Advance Directives and Living Will Summary Purpose Family History No Family History Records Found Relationship Condition Age at Onset Recorded Date/T yaquelin mother Malignant neoplasm of urinary bladder Unk nown Chief Complaint and Reason for Visit Chief Complaint Admit Date HYPERSOMNIA December 14, 2024 11:0 0am Additional Source Comments Reason for Visit (unrecogniz ed section and content) Reason Comments Follow-up IUD check and patien t c/o bv , vag odor and dc x 3 days Reason Comments Annual Exam patient still has so me symptoms of bv after one round of cleocin Reason Comments Annual Exam Reason Comments Routine Visit remove iud, patie nt c/o vaginal irritation Reason Comments Medication Refill Reason Onset Date Comments Shoulder Pain 08/03/2022 Reason Comments Med Refill Reason Onset Date Comments Question 02/22/2023 Reason Onset Date Comments Med Refill 10/28/2023 Reason Onset Date Comments Dizziness 11/29/2023 Reason Comments Dizziness Nausea Was very sick last D ecember and since then have had nausea and dizzy but they are getting worse Reason Onset Date Comments Error (VOID this visit) 08/03/2022 Reason Comments Shoulder Pain rt Neck Pain INFORMATION SOURCE (unrecogn ized section and content) DATE CREATED AUTHOR 07/04/2020 [facility] DATE CREATED AUTHOR AUTHOR'S ORGANIZ ATION 12/21/2020 [facility] DATE CREATED AUTHOR AUTHOR'S ORGANIZ ATION 01/19/2021 [facility] DATE CREATED AUTHOR AUTHOR'S ORGANIZ ATION 06/14/2023 [facility] DATE CREATED AUTHOR AUTHOR'S ORGANIZ ATION 02/05/2024 [facility] DATE CREATED AUTHOR AUTHOR'S ORGANIZ ATION 04/12/2025 [facility] Care Teams (unrecognized sec tion and content) 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 Portable Relationship Specialty Start Date End Date Karina Christine MD [address] [facility] [address] [place] [address] PCP - General Family Medicine 07/08/17 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 Portable Relationship Specialty Start Date End Date George Maza DO [address] [place] [address] PCP - General 11/06/16 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 Portable Relationship Specialty Start Date End Date George Maza DO [address] [place], [place] [id number] PCP - General 11/06/16 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 Portable Relationship Specialty Start Date End Date George Maza DO [address] [place], [place] [id number] PCP - General 11/06/16 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 Portable Relationship Specialty Start Date End Date George Maza DO [address] [place], [place] [phone] PCP - General 11/06/16 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 Portable Relationship Specialty Start Date End Date George Maza [address] [place] [phone] PCP - General 11/06/16 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 Portable Relationship Specialty Start Date End Date George Maza Chase [address] [place] [phone] PCP - General 11/06/16 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 George Maza , Family Provider Active Zebulun Beam VSC, BOX INSPECTOR-C Primary Care Provider Active Team Status: Inactive Member Role Status Dates Zebulun Beam VSC, BOX INSPECTOR-C Primary Care Provider Active Start: November 15, 2024 End: November 15, 2024 Zebulun Beam VSC, BOX INSPECTOR-C Attending Provider Active Start: November 15, 2024 End: November 15, 2024 Team Status: Active Member Role/Relationship Status Dates Zebulun Beam VSC, BOX INSPECTOR-C Primary Care Provider Active Team Status: Inactive Member Role/Relationship Status Dates Zebulun Beam VSC, BOX INSPECTOR-C Primary Care Provider Active Start: November 15, 2024 End: November 15, 2024 Brian Dominguez VSC, BOX INSPECTOR-C Attending Provider Active Start: November 15, 2024 End: November 15, 2024 Team Status: Inactive Member Role/Relationship Status Dates Brian Dominguez VSC, BOX INSPECTOR-C Primary Care Provider Active Start: December 14, 2024 End: December 14, 2024 Brian Dominguez VSC, BOX INSPECTOR-C Attending Provider Active Start: December 14, 2024 End: December 14, 2024 Brian Dominguez VSC, BOX INSPECTOR-C Referring Provider Active Start: December 14, 2024 End: December 14, 2024 Goals (unrecognized section and content) Goals may be documented in a n alternate sectionGoals may be documented in an alternate section FOR RECORDS PERTAINING TO PATIENTS WHO ARE OR HAVE BEEN ENROLLED IN A CHEMICAL DEPENDENCY/SUBSTANCEABUSE PROGRAM, SOME INFORMATION MAY BE OMITTED. This clinical summary was aggregated from multiple sources. Caution should be exercised in using it in the provision of clinical care. This summary normalizes information from multiple sources, and as a consequence, information in this document may materially change the coding, format and clinical context of patient data. In addition, data may be omitted in some cases. CLINICAL DECISIONS SHOULD BE BASED ON THE PRIMARY CLINICAL RECORDS. [employer] provides no warranty or guarantee of the accuracy or completeness of information in this document.
[2025-05-01 07:29] LABS: Internal QC Validated? YES +Cl - CLEAR BKGD; Pregnancy, Urine Negative Negative; Record Kit Lot#,Urine Preg 980607
[2025-05-01] MEDS: Lactated Ringers 1,000 ML 15 ML IV (07:36)
--- NOTE | 2025-05-01 07:55 | PCM.PRE.AN2 ---
ASA Classification* ASA Classification ASA Classification: 2 Assessment & Plan Anesthesia* Anesthesia Assessment Anesthesia Assessment: Discussed sedation and/or anesthesia options, risks, benefits, and alternatives with patient/parents/legal guardian/POA. Questions invited. The patient/parents/legal guardian/POA seems to understand and agrees to proceed with anesthesia plan. Reviewed the physical assessment, medical history, allergy history and patient home medications list prior to surgery/procedure/anesthetic and documented any changes. Performed airway and anesthesia risk assessments. Anesthesia Type Anesthesia Type: MAC History Source History Obtained from:: Patient and Chart Anesthesia Focused Assessment* Temperature: 98.4 F Pulse Rate: 82 Blood Pressure: 104/64 Respiratory Rate: 16 Pulse Ox: 100 Oxygen Delivery Method: Room Air Airway Assessment Mouth opens: >3 cm Mallampati Score: III Teeth Condition: Intact Neck Range of motion (ROM): Limited ROM (Somewhat Decreased) Labs Anesthesia Preop lab: CBC WBC, (4.4-11.0) 4.7 K/mm3 11/15/24, 10:05 RBC, (4.2-5.4) 4.35 M/mm3 11/15/24, 10:05 Hgb, (12.0-15.0) 12.6 g/dL 11/15/24, 10:05 Hct, (37-47) 38.1 % 11/15/24, 10:05 Plt Count, (150-450) 246 K/mm3 11/15/24, 10:05 CHEMISTRY Potassium, (3.3-5.1) 3.7 mmol/L 11/15/24, 10:05 Sodium, (133-145) 139 mmol/L 11/15/24, 10:05 BUN, (4-19) 8 mg/dL 11/15/24, 10:05 Creatinine, (0.70-1.20) 0.79 mg/dL 11/15/24, 10:05 Glucose, (70-99) 72 mg/dL 11/15/24, 10:05 TSH, (0.300-4.200) 1.250 uIU/mL 11/15/24, 10:05 COAG Urine Test Negative Negative Today, 07:15 Tst Clinic Negative 05/31/23, 11:11 Pre-Assessment Diagnosis/Proposed Procedure Planned Operative Procedure(s): EGD Anesthesia History Anesthesia History - philanthropy officer: Anesthesia History - philanthropy officer Hx Hospitalization No 04/25/25 10:14 Any Problems With Anesthesia No 04/25/25 10:14 Cholinesterase deficiency No 04/25/25 10:14 You/Your Family Experience No 04/25/25 10:14 fever (hyperthermia) with Relationship Recent Exposure to Contagious No 05/01/25 07:33 Disease Does patient have nerve No 04/25/25 10:14 stimulator Patient instructed to have device shut off --Does patient have Pacemaker No 05/01/25 07:33 or ICD? When Was Last Pacemaker Check QUESTION #4 FULL TEXT: You/Your Family Experience fever (hyperthermia) with Anesthesia Last Oral Intake Last Oral intake: Last Oral Intake NPO since 20:00 05/01/25 07:33 Meds taken in AM with sips of No 05/01/25 07:33 water? Meds patient instructed to take am of surgery PONV PONV - philanthropy officer: PONV - philanthropy officer Female Yes 04/25/25 10:14 HX of Motion Sickness Yes 04/25/25 10:14 HX of N/V After Surgery No 04/25/25 10:14 Non-Smoker Yes 04/25/25 10:14 Duration of Surgery greater No 04/25/25 10:14 than 60 minutes Number of Risk Factors 3 04/25/25 10:14 PONV Score Moderate Risk 04/25/25 10:14 Height & Weight Height & Weight: Anesthesia: Height & Weight Height 5 ft 1 in 05/01/25 07:33 Weight: 71 kg 05/01/25 07:33 Body Mass Index (BMI) 29.5 05/01/25 07:33 Respiratory Assessment Respiratory Assessment - philanthropy officer: Respiratory Tract Infection Hx - philanthropy officer Hx Respiratory Tract Infection No 04/25/25 10:14 STOP Sleep Apnea STOP Sleep Apnea - philanthropy officer: STOP Sleep Apnea - philanthropy officer Hx Hypertension No 04/25/25 10:14 Hx Sleep Apnea No 04/25/25 10:14 CPAP BIPAP Do you snore loudly (louder No 04/25/25 10:14 than talking or can be heard Do you often feel tired/ No 04/25/25 10:14 fatigued/ sleepy during daytime? Has anyone observed you stop No 04/25/25 10:14 breathing during sleep? STOP Results Negative 04/25/25 10:14 QUESTION #5 FULL TEXT : Do you snore loudly (louder than talking or can be heard through closed doors)? Tobacco Use History Tobacco Use History - philanthropy officer: Tobacco Use History - philanthropy officer Tobacco Use Smoking Status Never smoker 04/25/25 10:14 Hx Tobacco Use No 04/25/25 10:14 Years Smoking Packs Smoked per Day Smoking Cessation Date was within the last 15 years Hx Smoking Cessation Date Hx Smoking Cessation Counseling Hematologic Medial History Hematologic Hx - philanthropy officer: Hematologic Medical Hx - clinical documentation clerk Hx of Blood Transfusion No 04/25/25 10:14 Hx of Transfusion in last 3 No 04/25/25 10:14 Months Date of Last Transfusion (if within last 3 months) Ever experience any problems No 04/25/25 10:14 with transfusion(s)? Specify any problems Hx of Preganancy in last 3 No 04/25/25 10:14 Months Nurse Filling Out Transfusion VCHRISTIN 04/25/25 10:14 & Questions: Date: 04/25/25 04/25/25 10:14 Time: 10:16 04/25/25 10:14 Patient unable to answer at this time (ie. confused, unrespo /Reproduction History /Reproductive History - philanthropy officer: /Reproductive Hx- philanthropy officer Hx Now No 04/25/25 10:14 Gestational Age (in weeks): EDC: Hx Hx Para Hx Section SAB No 04/25/25 10:14 Does the father of the baby or his family experience fever w Father of the baby Malignant Hypertension history comment Active Medications Active Medications: Current Medications Generic Name Dose Route Start Last Admin Trade Name Freq PRN Reason Stop Dose Admin Lactated Ringer's 1,000 mls @ 15 mls/hr 05/01/25 07:15 05/01/25 07:36 IV 15 mls/hr .Q48H TIA Administration PFSH Medical History Migraine headache Gastric reflux Legally blind Heartburn Non-smoker Home Medications Medication Instructions Recorded Last Taken Type fluticasone propionate 50 1 spray intranasal DAILY 01/25/25 Unknown History mcg/actuation nasal spray,suspension pantoprazole 40 mg tablet,delayed 40 mg PO QDAY PRN GERD 08/28/25 Unknown History release coenzyme Q10 100 mg capsule (Co 100 mg PO DAILY 04/25/25 Unknown History Q-10) levocetirizine 5 mg tablet 5 mg PO DAILY 04/25/25 Unknown History (Allergy Relief (levocetirizine)) [id number] fum 28 mg 1 cap PO DAILY 04/25/25 Unknown History iron-folate no.6 1 mg-dha 300 mg capsule (Prenate DHA) Allergy/AdvReac Type Severity Reaction Status Date / Time No Known Allergies Allergy Verified 05/01/25 07:33 Family History Mother Bladder cancer Surgical History S/P dilation and curettage (~04/22/21) History of foot surgery Social History household members: family number of children: 0 current occupational status: employed current occupation: [employer] history of recent travel: No sexually active: Yes Smoking Status: Never smoker alcohol intake: current alcohol intake frequency: holidays/special occasions only substance use type: does not use what type of physical activity do you participate in: none seatbelt use: always do you feel safe at home: Yes additional social history: single Review of Systems (Anesthesia) ROS Narrative System reviewed and no additional complaints, except as documented.
--- NOTE | 2025-05-01 08:15 | EGD_PTH ---
PATIENT: FAUZIA CARTWRIGHT LOC: EN U#:[id number] AGE/SX: 40/F ROOM: RE05/01/[address]: Dr. Dillon Morrissey MD : [id number] BED: DIS: 05/01/2025 SPEC #: [id number] RECD: 05/01/25 10:22 STATUS: JESI REQ #: [id number] JOSE: 05/01/25 08:[address]: Dillon Morrissey DEPT: SURGICAL PATHOLOGY RECD BY: Jose Erwin ENTERED: 05/01/25 10:44 SP TYPE: EGD BIOPSY OT DR: Brian Dominguez, [facility], NOZZLE CEMENT SPRAYER HELPER-C Tissues: A - Gastric mucous membrane B - Gastric mucous membrane C - Esophagus, NOS Procedures: Immunohistochemical Stains Surgery Specimen Level IV HEADER OPERATION: EGD, biopsy PRE-OP DIAGNOSIS: GERD TISSUE SUBMITTED: A- Antrum biopsy, B- Gastric body biopsy, C- GE junction biopsy MICROSCOPIC DIAGNOSIS A. Stomach, antrum, biopsy: - Features of reactive gastropathy. - IHC negative for H. pylori organisms. B. Stomach, body, biopsy: - Combined features of fundic gland polyp and hyperplastic polyp. C. Esophagus, GE junction, biopsy: - squamous mucosa with reactive changes. - greater than 30 eosinophils per high power field. MICROSCOPIC DESCRIPTION Slides are reviewed. All matched controls reacted appropriately. These tests were developed and their performance characteristics determined by [facility]. They may not have been cleared or approved by the U.S. Food and Drug Administration. The FDA has determined that such clearance or approval is not necessary. The above immunohistochemical markers and/or special stains have been reviewed by the Pathologist. GROSS DESCRIPTION A. Received in fixative is one container labeled with the patient's name and designated "Antrum biopsy." The specimen consists of four irregular fragments of greenberg tissue that measure 0.1 to 0.3 cm. The specimen is totally submitted in one cassette. B. Received in fixative is one container labeled with the patient's name and designated "Gastric body biopsy." The specimen consists of one irregular fragment of greenberg tissue that measures 0.4 cm. The specimen is totally submitted in one cassette. C. Received in fixative is one container labeled with the patient's name and designated "GE junction biopsy." The specimen consists of two irregular fragments of greenberg tissue that measure 0.3 and 0.4 cm. The specimen is totally submitted in one cassette. NV 05/01/2025 CPT:[id number]
--- NOTE | 2025-05-01 08:44 | PCM.HP.STD ---
HPI - General General Date of Admission: 05/01/25 Date of Service: 05/01/25 Chief Complaint: Chronic reflux HPI Narrative FAUZIA CARTWRIGHT, is a 40 F who presents today for EGD with biopsies. Patient with longstanding history of reflux. She does take pantoprazol however it sounds as though this may not be as effective as it had been previously. She has not had a previous EGD [facility] Medical History GERD (gastroesophageal reflux disease) Migraine headache Gastric reflux Legally blind Heartburn Non-smoker Home Medications Medication Instructions Recorded Last Taken Type fluticasone propionate 50 1 spray intranasal DAILY 01/25/25 Unknown History mcg/actuation nasal spray,suspension pantoprazole 40 mg tablet,delayed 40 mg PO QDAY PRN GERD 01/25/25 Unknown History release coenzyme Q10 100 mg capsule (Co 100 mg PO DAILY 04/25/25 Unknown History Q-10) levocetirizine 5 mg tablet 5 mg PO DAILY 04/25/25 Unknown History (Allergy Relief (levocetirizine)) [id number] fum 28 mg 1 cap PO DAILY 04/25/25 Unknown History iron-folate no.6 1 mg-dha 300 mg capsule (Prenate DHA) Allergy/AdvReac Type Severity Reaction Status Date / Time No Known Allergies Allergy Verified 05/01/25 07:33 Family History Mother Bladder cancer Surgical History S/P dilation and curettage (~04/22/21) History of foot surgery Social History household members: family number of children: 0 current occupational status: employed current occupation: [employer] Trip history of recent travel: No sexually active: Yes Smoking Status: Never smoker alcohol intake: current alcohol intake frequency: holidays/special occasions only substance use type: does not use what type of physical activity do you participate in: none seatbelt use: always do you feel safe at home: Yes additional social history: single Vital Signs Vital Signs Vital Signs: 05/01/25 07:33 05/01/25 07:33 05/01/25 07:33 Temperature 98.4 F Temperature Source Temporal Pulse Rate 82 Respiratory Rate 16 Respiratory Pattern Normal Blood Pressure 104/64 Blood Pressure Mean 77 Blood Pressure Source Monitor Blood Pressure Position Sitting Blood Pressure Location Left Arm Baseline BP 104/64 Pulse Ox 100 Oxygen Delivery Method Room Air 05/01/25 08:00 Temperature 98.4 F Temperature Source Pulse Rate 82 Respiratory Rate 16 Respiratory Pattern Blood Pressure 104/64 Blood Pressure Mean Blood Pressure Source Blood Pressure Position Blood Pressure Location Baseline BP Pulse Ox 100 Oxygen Delivery Method Room Air Weight Weight: 156 lb 8.451 oz Body Mass Index (BMI) 29.5 Physical Exam Const alert, oriented x3 and no apparent distress Results Lab / Micro Data Labs: Laboratory Results - last 24 hr 05/01/25 07:15: Urine Test Negative Assessment & Plan Assessment/Plan (1) GERD (gastroesophageal reflux disease): PLAN: Plan EGD with biopsies planned for today. Discussed the details of the planned procedure as well as risks benefits and alternatives. She wishes to proceed. This will begin momentarily
--- NOTE | 2025-05-01 09:12 | OP.PROVAT_ITS ---
05/01/2025 Brian Dominguez Np, Consumer Insights Specialist-c Re : Upper GI endoscopy procedure for Bree Dominguez This procedure was performed on Thursday, May 01, 2025. My impressions and recommendations are as follows: Impressions : - Erythematous duodenopathy. - Chronic gastritis. Biopsied. - A single gastric polyp. Resected and retrieved. - Small hiatal hernia. - Normal esophagus. Biopsied. Recommendations : - Discharge patient to home (ambulatory). - Resume previous diet. - Continue present medications. - Await pathology results. - Repeat upper endoscopy in 3 years for surveillance based on pathology results. - Return to my office PRN. My findings are described in the full procedure note, which is enclosed. If I can be of further assistance, please feel free to contact me at . Sincerely, Dillon Morrissey MD 05/01/2025 9:12:12 AM This report has been signed electronically.
--- NOTE | 2025-05-01 09:12 | OP.EGD_ITS ---
Patient Name: Bree Gutierrez Procedure Date: 05/01/2025 8:38 AM Date of : 1985 Age: 40 Procedure: Upper GI endoscopy Indications: Heartburn Providers: Dillon Morrissey MD Referring MD: Brian Dominguez Np, Facilities Project Manager-c Medicines: Monitored Anesthesia Care Patient Profile: Refer to note in patient chart for documentation of history and physical. Patient has symptoms of chronic heartburn. Complications: No immediate complications. Estimated blood loss: Minimal. Procedure: Pre-Anesthesia Assessment: - Prior to the procedure, a History and Physical was performed, and patient medications and allergies were reviewed. The patient's tolerance of previous anesthesia was also reviewed. The risks and benefits of the procedure and the sedation options and risks were discussed with the patient. All questions were answered, and informed consent was obtained. Prior Anticoagulants: The patient has taken no anticoagulant or antiplatelet agents. ASA Grade Assessment: II - A patient with mild systemic disease. After reviewing the risks and benefits, the patient was deemed in satisfactory condition to undergo the procedure. After obtaining informed consent, the endoscope was passed under direct vision. Throughout the procedure, the patient's blood pressure, pulse, and oxygen saturations were monitored continuously. The Endoscope was introduced through the mouth, and advanced to the duodenal bulb. The upper GI endoscopy was accomplished without difficulty. The patient tolerated the procedure well. Moderate Sedation: See the other procedure note for documentation of moderate sedation with intraservice time. Scope In: 8:59:23 AM Scope Out: 9:05:32 AM Total Procedure Duration Time 0 hours 6 minutes 9 seconds Findings: Diffuse mildly erythematous mucosa without active bleeding and with no stigmata of bleeding was found in the duodenal bulb. Localized minimal inflammation was found in the gastric antrum. Biopsies were taken with a cold forceps for Helicobacter pylori testing. Verification of patient identification for the specimen was done by the nurse using the patient's name, date and medical record number. Estimated blood loss was minimal. A single 2 mm semi-pedunculated polyp with no bleeding and no stigmata of recent bleeding was found in the stomach. The polyp was removed with a cold biopsy forceps. Resection and retrieval were complete. Verification of patient identification for the specimen was done by the nurse using the patient's name, date and medical record number. Estimated blood loss was minimal. A small hiatal hernia was present. The examined esophagus was normal. Mucosa was biopsied with a cold forceps for histology randomly at the gastroesophageal junction. Verification of patient identification for the specimen was done by the nurse using the patient's name, date and medical record number. Estimated blood loss was minimal. Impression: - Erythematous duodenopathy. - Chronic gastritis. Biopsied. - A single gastric polyp. Resected and retrieved. - Small hiatal hernia. - Normal esophagus. Biopsied. Recommendation: - Discharge patient to home (ambulatory). - Resume previous diet. - Continue present medications. - Await pathology results. - Repeat upper endoscopy in 3 years for surveillance based on pathology results. - Return to my office PRN. Procedure Code(s): --- Professional --- 77010, Esophagogastroduodenoscopy, flexible, transoral; with biopsy, single or multiple Diagnosis Code(s): --- Professional --- K31.89, Other diseases of stomach and duodenum K29.50, Unspecified chronic gastritis without bleeding K31.7, Polyp of stomach and duodenum R12, Heartburn K44.9, Diaphragmatic hernia without obstruction or gangrene CPT copyright 2021 [employer]. All rights reserved. The codes documented in this report are preliminary and upon coater brake linings review may be revised to meet current compliance requirements. Dillon Morrissey MD 05/01/2025 9:12:12 AM This report has been signed electronically. Number of Addenda: 0 Note Initiated On: 05/01/2025 8:38 AM
--- NOTE | 2025-05-01 09:17 | PCM.POST.ANE ---
Anesthesia: Postop Eval I Current Vital Signs Temperature: 97 F Pulse Rate: 67 Blood Pressure: 105/71 Respiratory Rate: 16 Pulse Ox: 97 Oxygen Delivery Method: Room Air Assessment Airway patent: Yes Spontaneous unlabored respirations: Yes Mental status: Asleep nausea: No Vomiting: No Anesthesia Complication: No Fluid Hydration Crystalloid volume administer (ml): 400 Total IV fluid infused: 400 Progress Note Anesthesia document: Postop Eval 1 completed: Yes
--- NOTE | 2025-05-01 10:43 | PCM.POSTANE2 ---
Anesthesia Postop Eval I Sum Postop Eval Completion status Anesthesia document: Postop Eval 1 completed: Yes Anesthesia Postop Eval I Summary Anesthesia Postop Eval I Summary: Anesthesia Postop Eval I: Assessment Summary Airway patent Yes 05/01/25 09:18 [email or web address] Spontaneous unlabored Yes 05/01/25 09:18 [email or web address] respirations Mental status Asleep 05/01/25 09:18 [email or web address] nausea No 05/01/25 09:18 [email or web address] Vomiting No 05/01/25 09:18 [email or web address] Anesthesia Postop Eval I: Fluid Summary Crystalloid volume administer 400 05/01/25 09:18 [email or web address] (ml) Colloids volume administered ( ml) Blood Product volume administered (ml) Total IV fluid infused 400 05/01/25 09:18 [email or web address] Anesthesia Postop Eval I: Summary Notes Anesthesia Complication No 05/01/25 09:18 [email or web address] Anesthesia Complication Comment: Post-operative progress note Anesthesia: Postop Eval II Evaluation Mental status: Awake and Calm Pain Level: 0 nausea: No Vomiting: No Complications Anesthesia Complication: No
== END 2025-05-01 10:01 | disposition home or self-care (01) ==
LOC: EN 07:07 → AC 07:09
PROVIDERS: Student in an Organized Health Care Education/Training Program; Visit Provider Surgery
PROC: 0DJ08ZZ Inspection of Upper Intestinal Tract, Via Natural or Artificial Opening Endoscopic (ICD-10-PCS; CPT 43235; principal; 2025-05-01 08:10)
DX: K21.9 Gastro-esophageal reflux disease without esophagitis (principal); K44.9 Diaphragmatic hernia without obstruction or gangrene; K29.50 Unspecified chronic gastritis without bleeding; K31.7 Polyp of stomach and duodenum; K31.89 Other diseases of stomach and duodenum; Z79.899 Other long term (current) drug therapy
CPT/HCPCS: 43239; 81025; 88305; 88342; J2405